=== PATIENT | female | born 1950 | race Caucasian/White ===

== ENCOUNTER 2016-11-06 18:55 | Emergency (ER) | payer OTHER ==
[~2016-11-06 18:55] MED LIST: ACET325T96 PO; ALUMSUS2 PO; ASPI-435 PO; ATOR-24 PO; ATV/1 PO; BISA10SU3 PR; CARV12.52 PO; CGN5 PO; CLOP1TAB15 PO; DPKEC250 PO; DPKEC500 PO; HALO5INJ IM; HLD5 PO; LACT3000 PO; LACTCAP3 PO; LORA2INJ19 IM; MAGN400T6 PO; MAGNSUS5 PO; MCRB100 PO; QUET1TAB10 PO; QUET1TAB13 PO; SODI1000 PO
[2016-11-06 19:01] VITALS: TEMP 36.4; O2SAT 95
[2016-11-06] MEDS ORDERED: LORAZEPAM 2 MG/ML 1 ML VIAL IM STA (19:55)
[2016-11-06] MEDS ORDERED: SODIUM CHLORIDE 0.9% 1000ML 500 ML IV STA (19:55)
[2016-11-06] MEDS ORDERED: HALOPERIDOL LACTATE 5 MG/ML 1 ML VIAL IM STA (19:55)
--- NOTE | 2016-11-06 20:02 | EMERGENCY ROOM VISIT NOTE ---
History Report prepared by Konstantin: Miguel Glover Under the Supervision of: Dr. Taran Doe M.D. First contact with patient: 19:47 Chief Complaint: SYNCOPE Stated Complaint: SYNCOPE, UNRESP EPISODE Nursing Triage Summary: pt arrives ALS from [facility]. per report pt has hx of similar unresponsive episodes. today pt had unresponsive episode lasting approx 10 minutes. pt was found in a chair. assisted to bed and did not "clear as normally". pt has hx of TIAs, HTN, dementia and schizophrenia as well as many others. pt has eyes open. pt does not talk to staff. pt looks around room. does not follow commands. per EMS [facility] staff report pt is usually uncooperative with them. pt has multiple areas of echymosis on legs in various stages of healing. History of Present Illness The patient is a 66 year old female with dementia who presents to the Emergency Room via ALS from [facility] with complaints of a sudden unresponsive episode beginning a few hours prior to arrival. She associates back pain with today's symptoms. As per nursing staff, the patient was found unresponsive in her chair. The episode lasted approximately 10 minutes, and the patient was assisted to her bed. It is noted that it is not uncommon the the patient to experience these episodes, and the patient tends to be uncooperative. It is noted the patient has a history of TIAs, dementia, and schizophrenia. It is noted the patient is DNR. The history is markedly limited secondary to the patient's dementia. Source of History: patient, nursing staff History Limited By: dementia Onset: few hours CASE WORKER Position: other (global) Quality: other (unresponsiveness) Timing: other (sudden) Associated Symptoms: + back pain Review of Systems The HPI and ROS are limited secondary to the patient's dementia. Past Medical & Surgical Medical Problems: (1) A-fib (2) Agitation (3) Alzheimer's disease (4) Atrial Fibrillation (5) Bipolar Disorder, Unspecified (6) Dementia (7) Diverticulosis Colon (W/O Ment Of Hemorrhage) (8) Elevated troponin (9) Esophageal Reflux (10) Fall (11) Hyperlipidemia Nec/Nos (12) Hypertension Nos (13) Hypomagnesemia (14) Hyponatremia Family History Diabetes mellitus Heart disease Other endocrine and metabolic diseases Social History Smoking Status: Unknown if Ever Smoked Alcohol Use: none Drug Use: none Marital Status: single Housing Status: senior care Occupation Status: retired Current/Historical Medications Scheduled Amoxicillin (Amoxil), 500 MG PO TID Aspirin (Aspirin 81), 81 MG PO DAILY Atorvastatin (Lipitor), 80 MG PO QPM Bisacodyl (Dulcolax), 1 SUPP PA PRN UD Carvedilol (Coreg), 12.5 MG PO BID Clopidogrel (Plavix), 75 MG PO DAILY Divalproex Sodium (Divalproex Sodium Dr), 250 MG PO [id number] Docusate Sodium (Docusate Sodium), 100 MG PO BID Ferrous Sulfate (Ferrous Sulfate), 325 MG PO BID Haloperidol (Haloperidol), 2.5 MG PO BID Lactase (Lactaid), 1 TAB PO AC Lactobacillus (Acidophilus), 100 MG PO BID Magnesium Hydroxide (Milk Of Magnesia), 30 ML PO PRN UD Magnesium Oxide (Mag-Ox), 400 MG PO BID Omeprazole (Prilosec), 20 MG PO QAM Polyethylene Glycol 3350 (Miralax), 17 GM PO DAILY@1200 Quetiapine Fumarate (Seroquel), 200 MG PO BID Sertraline (Zoloft), 25 MG PO QAM Sodium Chloride (External) (Sodium Chloride), 2,000 MG PO TID Scheduled PRN Acetaminophen Tab (Tylenol), 650 MG PO Q6 PRN for Pain or Fever Haloperidol Lactate (Haldol), 5 MG IM Q4 PRN for SEVERE AGGITATION Lorazepam (Ativan), 2 MG IM Q4 PRN for SEVERE AGGITATION/ANXIETY Sodium Phosphate/Biphosphate (Fleet Enema), 1 EA PA DAILY PRN for Constipation Allergies Coded Allergies: Chlordiazepoxide (Verified Allergy, Unknown, unk, 11/06/16) Clindamycin (Verified Allergy, Unknown, unknown, 11/06/16) Dairy (Unverified Allergy, Unknown, GI SYMPTOMS, 11/06/16) Erythromycin (Verified Allergy, Unknown, unk, 11/06/16) Honey (Verified Allergy, Unknown, unk, 11/06/16) Meperidine (Verified Allergy, Unknown, unk, 11/06/16) Metoprolol (Verified Allergy, Unknown, unk, 11/06/16) Paroxetine (Verified Allergy, Unknown, unk, 11/06/16) Peanut (Verified Allergy, Unknown, PEANUT BUTTER, 11/06/16) Sulfa Antibiotics (Verified Allergy, Unknown, `, 11/06/16) Venlafaxine (Verified Allergy, Unknown, unk, 11/06/16) Penicillins (Verified Adverse Reaction, Intermediate, NAUSEA, YEAST INFECTION, 11/06/16) Lactose Intolerance (GI) (Verified Adverse Reaction, Unknown, GI SYMPTOMS , 11/06/16) Physical Exam Vital Signs Date Time Temp Pulse Resp B/P Pulse Ox O2 Delivery O2 Flow Rate FiO2 11/07/16 02:57 78 20 122/71 99 Room Air 11/07/16 01:55 80 18 121/69 96 Room Air 11/07/16 00:04 81 20 95/60 95 Room Air 11/06/16 22:20 80 20 124/95 96 Room Air 11/06/16 21:19 78 20 142/97 96 Room Air 11/06/16 20:59 196/123 11/06/16 20:55 82 31 95 11/06/16 20:29 156/107 11/06/16 20:25 79 24 96 11/06/16 19:58 160/126 11/06/16 19:55 80 37 96 11/06/16 19:28 150/112 11/06/16 19:25 94 29 95 11/06/16 19:11 82 11/06/16 19:06 147/105 11/06/16 19:01 95 Room Air 11/06/16 19:01 36.4 85 24 152/107 94 Room Air Physical Exam GENERAL: Patient is yelling, awake, lying on stretcher. HEENT: No acute trauma, normocephalic atraumatic, mucous membranes moist, no nasal congestion, no scleral icterus. NECK: No stridor, no adenopathy, no meningismus, trachea is midline. LUNGS: Clear to auscultation bilaterally, no wheeze, no rhonchi, breath sounds equal. HEART: Without murmurs gallops or rubs, regular rate and rhythm. ABDOMEN: Soft, nontender, bowel sounds positive, no hernias, no peritonitis. EXTREMITIES: No cyanosis or edema, full range of motion of all the joints without pain or difficulty. NEUROLOGIC: Awake, alert. Dementia noted. Moving all extremities equally. No obvious focal motor deficit. No facial droop. SKIN: No rash, no jaundice, no diaphoresis. Medical Decision & Procedures ER Provider Diagnostic Interpretation: X ray results and stated below per my interpretation and radiologist interpretation. Other radiology results and stated below per my review and radiologist interpretation: CHEST ONE VIEW PORTABLE HISTORY: EVALUATE ALTERED MENTAL STATUS/WEAKNESS COMPARISON: Chest 06/21/2016. FINDINGS: No pleural effusions. No pneumothorax. The lungs are clear. The heart is stable in size. There is a large hiatus hernia, unchanged. IMPRESSION: No significant change compared to the prior study. No acute process. Large hiatus hernia is again noted. Electronically signed by: Feliciano Armendariz M.D. 11/06/2016 8:39 PM Dictated Date/Time: 11/06/2016 8:[address] NON[address]AST CT DOSE: 1228.53 mGy.cm HISTORY: EVALUATE ALTERED MENTAL STATUS/WEAKNESS TECHNIQUE: Multiaxial CT images of the head were performed without the use of intravenous contrast. Automated exposure control was utilized for this study. Comparison: Head CT 06/21/2016. Findings: Small retention cysts within the bilateral maxillary sinuses. The mastoid air cells are clear. The calvarium and skull base are intact. There is no mass, hematoma, midline shift, acute infarct. White matter hypodensity is nonspecific but suggestive of microvascular ischemic change. The ventricles and sulci demonstrate mild age-related involutional changes. Impression: No significant change compared to the prior study. No acute intracranial abnormality. Electronically signed by: Feliciano Armendariz M.D. 11/06/2016 10:17 PM Dictated Date/Time: 11/06/2016 10:14 PM Laboratory Results 11/06/16 21:14 Red Blood Count 4.04, Mean Corpuscular Volume 95.3, Mean Corpuscular Hemoglobin 33.9, Mean Corpuscular Hemoglobin Concent 35.6, Mean Platelet Volume 10.4, Neutrophils (%) (Auto) 56.0, Lymphocytes (%) (Auto) 29.0, Monocytes (%) (Auto) 9.2, Eosinophils (%) (Auto) 5.1, Basophils (%) (Auto) 0.5, Neutrophils # (Auto) 4.70, Lymphocytes # (Auto) 2.44, Monocytes # (Auto) 0.77, Eosinophils # (Auto) 0.43, Basophils # (Auto) 0.04 11/06/16 21:14 Test 1/11/17 00:00 11/06/16 21:14 Urine Color YELLOW Urine Appearance CLEAR (CLEAR) Urine pH 7.0 (4.5-7.5) Urine Specific [place] 1.010 (1.000-1.030) Urine Protein NEG (NEG) Urine Glucose (UA) NEG (NEG) Urine Ketones NEG (NEG) Urine Occult Blood NEG (NEG) Urine Nitrite POS (NEG) Urine Bilirubin NEG (NEG) Urine Urobilinogen NEG (NEG) Urine Leukocyte Esterase MODERATE (NEG) Urine WBC (Auto) >30 /hpf (0-5) Urine RBC (Auto) 0-4 /hpf (0-4) Urine Hyaline Casts (Auto) 1-5 /lpf (0-5) Urine Epithelial Cells (Auto) 0-5 /lpf (0-5) Urine Bacteria (Auto) 3+ (NEG) White Blood Count 8.40 K/uL (4.8-10.8) Red Blood Count 4.04 M/uL (4.2-5.4) Hemoglobin 13.7 g/dL (12.0-16.0) Hematocrit 38.5 % (37-47) Mean Corpuscular Volume 95.3 fL (80-100) Mean Corpuscular Hemoglobin 33.9 pg (25-34) Mean Corpuscular Hemoglobin Concent 35.6 g/dl (32-36) Platelet Count 326 K/uL (130-400) Mean Platelet Volume 10.4 fL (7.4-10.4) Neutrophils (%) (Auto) 56.0 % Lymphocytes (%) (Auto) 29.0 % Monocytes (%) (Auto) 9.2 % Eosinophils (%) (Auto) 5.1 % Basophils (%) (Auto) 0.5 % Neutrophils # (Auto) 4.70 K/uL (1.4-6.5) Lymphocytes # (Auto) 2.44 K/uL (1.2-3.4) Monocytes # (Auto) 0.77 K/uL (0.11-0.59) Eosinophils # (Auto) 0.43 K/uL (0-0.5) Basophils # (Auto) 0.04 K/uL (0-0.2) RDW Standard Deviation 46.3 fL (36.4-46.3) RDW Coefficient of Variation 13.4 % (11.5-14.5) Immature Granulocyte % (Auto) 0.2 % Immature Granulocyte # (Auto) 0.02 K/uL (0.00-0.02) Anion Gap 13.0 mmol/L (3-11) Estimated GFR () 105.2 Estimated GFR (Non- 90.8 BUN/Creatinine Ratio 23.2 (10-20) Calcium Level 9.3 mg/dl (8.5-10.1) Total Bilirubin 0.4 mg/dl (0.2-1) Aspartate Amino Transf (AST/SGOT) 23 U/L (15-37) Alanine Aminotransferase (ALT/SGPT) 16 U/L (12-78) Alkaline Phosphatase 95 U/L (45-117) Troponin I < 0.015 ng/ml (0-0.045) Total Protein 7.3 gm/dl (6.4-8.2) Albumin 3.5 gm/dl (3.4-5.0) Globulin 3.8 gm/dl (2.5-4.0) Albumin/Globulin Ratio 0.9 (0.9-2) Valproic Acid (Depakene) Level 53 mcg/ml (50-100) Laboratory results reviewed by me. Medications Administered Medications (Trade) Dose Ordered Sig/Trudi Route Start Time Stop Time Status Last Admin Dose Admin Haloperidol Lactate (Haldol Inj) 5 mg NOW STAT IM 11/06/16 19:55 11/06/16 19:57 DC 11/06/16 20:05 5 MG Lorazepam 1 mg 1 mg NOW STAT IM 11/06/16 19:55 11/06/16 19:58 DC 11/06/16 20:05 1 MG Sodium Chloride 500 ml @ 999 mls/hr Q31M STAT IV 11/06/16 19:55 11/06/16 20:25 DC 11/06/16 20:06 999 MLS/HR Ampicillin Sodium/ Sulbactam Sodium/ Sodium Chloride (Unasyn Inj/Nss 50ml) 54 ml @ 100 mls/hr NOW STAT IV 11/06/16 22:48 11/06/16 23:20 DC 11/06/16 23:00 100 MLS/HR ECG Indication: other (unresponsiveness) Rate (beats per minute): 74 Rhythm: normal sinus Findings: no acute ischemic change, no ectopy, other (old septal infarct) ED Course 1949: The patient was evaluated in room B12A. A complete history and physical exam was performed. 1954: Ordered Sodium Chloride 500 ml @ 999 mls/hr IV, Ativan Inj 1 mg IM, Haldol Inj 5 mg IM. 2247: Ordered Ampicillin Sodium/ Sulbactam Sodium 1,500 mg/Sodium Chloride 54 ml @ 100 mls/hr IV. 1955: I spoke to the patient's power of litigation attorney, and she would like labs and urine tests performed. She notes the patient can return to [facility] if nothing is found on the tests. 2252: Reevaluated the patient. The patient is ready for discharge. Medical Decision The differential diagnoses include but are not limited to: UTI, dehydration, stroke, intracranial bleeding, electrolyte imbalance, cardiac ischemia, medication reaction, [place]. There is no leukocytosis or concerning anemia. No significant electrolyte abnormality, kidney failure, hepatitis. EKG shows a sinus rhythm, there was no acute ischemia. Cardiac enzyme testing times one is not suggestive of acute cardiac injury. Chest x-ray shows no true pneumonia, no CHF. Brain CT shows no acute bleed or mass effect. Urinalysis does suggest infection. Urine culture is pending. Valproic acid level is therapeutic. The patient received IV saline. Because she was somewhat agitated, I spoke to her power of litigation attorney over the phone. The patient did receive IM Haldol and IM Ativan, she did well with this medication, she actually has Haldol on her list of meds. The patient was resting comfortably after this medication was given. The patient did receive IV Unasyn as coverage for her UTI. Previous urine cultures have shown sensitivity to ampicillin. The patient is being discharged on amoxicillin 3 times a day for a week. The antibiotics can be adjusted based on her urine culture. The patient can be returned if worsening. She was felt safe for discharge back to her senior care. Apparently, these unresponsive episodes are not uncommon, the power of litigation attorney voiced this to me. Often times, she does become more agitated and uncooperative when she has a urinary infection. Consults Time Called: 1950 Consulting Physician: Patient's power of litigation attorney Returned Call: 1955 I spoke to the patient's power of litigation attorney, and she would like labs and urine tests performed. She notes the patient can return to [facility] if nothing is found on the tests. Impression Primary Impression: Unresponsive episode Additional Impression: UTI (urinary tract infection) Scribe Attestation The scribe's documentation has been prepared under my direction and personally reviewed by me in its entirety. I confirm that the note above accurately reflects all work, treatment, procedures, and medical decision making performed by me. Departure Information Dispostion Home / Self-Care Prescriptions Amoxicillin (AMOXIL) 500 Mg Cap 500 MG PO TID, #21 CAP Prov: Taran Doe M.D. 11/06/16 Referrals Hui Lacy (PCP) Forms HOME CARE DOCUMENTATION FORM, IMPORTANT VISIT INFORMATION Patient Instructions A Signature Page, My [facility] FRAMED Additional Instructions amoxicillin 3x per day for 1 week fluids rest return if worsening lab testing and brain imaging was all ok today Problem Qualifiers
[2016-11-06] MEDS ORDERED: SERT25TA PO (20:11)
[2016-11-06] MEDS ORDERED: SODIENE PR (20:11)
[2016-11-06] MEDS ORDERED: ATOR-26 PO (20:11)
[2016-11-06] MEDS ORDERED: POLY335025 PO (20:11)
[2016-11-06] MEDS ORDERED: PRLSR20 PO (20:11)
[2016-11-06] MEDS ORDERED: CLC100 PO (20:11)
[2016-11-06] MEDS ORDERED: FRRS300 PO (20:11)
--- NOTE | 2016-11-06 20:41 | DIAGNOSTIC IMAGING REPORT ---
CHEST ONE VIEW PORTABLE HISTORY: EVALUATE ALTERED MENTAL STATUS/WEAKNESS COMPARISON: Chest 06/21/2016. FINDINGS: No pleural effusions. No pneumothorax. The lungs are clear. The heart is stable in size. There is a large hiatus hernia, unchanged. IMPRESSION: No significant change compared to the prior study. No acute process. Large hiatus hernia is again noted. Electronically signed by: Feliciano Armendariz M.D. 11/06/2016 8:39 PM Dictated Date/Time: 11/06/2016 8:38 PM
[2016-11-06 21:49] LABS: BASO % 0.5 %; BASO ABS # 0.04 K/uL (0-0.2); COMPLETE YES; EOS % 5.1 %; HEMATOCRIT 38.5 % (37-47); IG% 0.2 %; LYMPH ABS # 2.44 K/uL (1.2-3.4); MEAN CELL VOLUME 95.3 fL (80-100); MEAN CORPUSCULAR HEMOGLOBIN 33.9 pg (25-34); MEAN CORPUSCULAR HGB CONC 35.6 g/dl (32-36); MEAN PLATELET VOLUME 10.4 fL (7.4-10.4); MONO % 9.2 %; PLATELET COUNT 326 K/uL (130-400); RED BLOOD COUNT 4.04 M/uL (4.2-5.4)
[2016-11-06 22:06] LABS: ALT/SGPT 16 U/L (12-78); BLOOD UREA NITROGEN 15 mg/dl (7-18); BUN/CREATININE RATIO 23.2 (10-20); CALCIUM 9.3 mg/dl (8.5-10.1); CARBON DIOXIDE 25 mmol/L (21-32); CHLORIDE 95 mmol/L (98-107); CREATININE 0.66 mg/dl (0.60-1.20); GLUCOSE 101 mg/dl (70-99); POTASSIUM 4.2 mmol/L (3.5-5.1); SODIUM 133 mmol/L (136-145)
[2016-11-06 22:10] LABS: ALB/GLOB RATIO 0.9 (0.9-2); ALKALINE PHOSPHATASE 95 U/L (45-117); AST/SGOT 23 U/L (15-37)
[2016-11-06 22:19] LABS: MANUAL MICROSCOPIC REQUIRED? NO; REVIEW REQ? NO; URINE APPEARANCE CLEAR (CLEAR); URINE BILIRUBIN NEG (NEG); URINE COLOR YELLOW; URINE EPITHELIAL CELL AUTO 0-5 /lpf (0-5); URINE NITRITE POS (NEG); UROBILINOGEN NEG (NEG); ZZURINE CULT IF INDIC CATH YES
--- NOTE | 2016-11-06 22:19 | DIAGNOSTIC IMAGING REPORT ---
HEAD CT NONCONTRAST CT DOSE: 1228.53 mGy.cm HISTORY: EVALUATE ALTERED MENTAL STATUS/WEAKNESS TECHNIQUE: Multiaxial CT images of the head were performed without the use of intravenous contrast. Automated exposure control was utilized for this study. Comparison: Head CT 06/21/2016. Findings: Small retention cysts within the bilateral maxillary sinuses. The mastoid air cells are clear. The calvarium and skull base are intact. There is no mass, hematoma, midline shift, acute infarct. White matter hypodensity is nonspecific but suggestive of microvascular ischemic change. The ventricles and sulci demonstrate mild age-related involutional changes. Impression: No significant change compared to the prior study. No acute intracranial abnormality. Electronically signed by: Feliciano Armendariz M.D. 11/06/2016 10:17 PM Dictated Date/Time: 11/06/2016 10:14 PM
[2016-11-06] MEDS ORDERED: AMPICILLIN/SULBACTAM SOD INJ 1,500 MG in SODIUM CHLORIDE 0.9% 50ML 50 ML IV STA (22:48)
[2016-11-06] MEDS ORDERED: AMOX500C3 PO (22:51)
[2016-11-07 02:57] VITALS: BP 122/71; PULSE 78; O2SAT 99
== END 2016-11-07 03:16 | disposition home or self-care (01) ==
LOC: EDBD 18:55 → C.EDB 18:56
DX: R41.82 Altered mental status, unspecified (principal); N39.0 Urinary tract infection, site not specified; I48.91 Unspecified atrial fibrillation; I10 Essential (primary) hypertension; E78.5 Hyperlipidemia, unspecified; F31.9 Bipolar disorder, unspecified; K21.9 Gastro-esophageal reflux disease without esophagitis; G30.9 Alzheimer's disease, unspecified; F02.80 Dementia in other diseases classified elsewhere, unspecified severity, without behavioral disturbance, psychotic disturbance, mood disturbance, and anxiety; K57.90 Diverticulosis of intestine, part unspecified, without perforation or abscess without bleeding; Z79.82 Long term (current) use of aspirin; Z79.899 Other long term (current) drug therapy; Z88.0 Allergy status to penicillin; Z88.2 Allergy status to sulfonamides; Z79.84 Long term (current) use of oral hypoglycemic drugs; Z83.3 Family history of diabetes mellitus; Z82.49 Family history of ischemic heart disease and other diseases of the circulatory system

== ENCOUNTER → 2016-11-14 | Outpatient (CLI) | payer OTHER ==
[~2016-11-14] MED LIST changes: +ACET-1311 PO; -ALUMSUS2 PO; +AMOX500C3 PO; +ARTISOL12 OPB; -ATOR-24 PO; +ATOR-26 PO; -ATV/1 PO; -CGN5 PO; +CLC100 PO; +DIVA250T4 PO; -DPKEC500 PO; +ERGO1CAP41 PO; +FRRS300 PO; +HALO5TAB PO; -MCRB100 PO; +NITR-5 PO; +POLY335025 PO; +PRLSR20 PO; -QUET1TAB13 PO; +QUET1TAB9 PO; +SENN-65 PO; +SERT25TA PO; +SODI1TAB PO; +SODIENE PR
== END ==
LOC: C.LABUPHEI 08:40
PROVIDERS: ATTEND Family Medicine
DX: G40.89 Other seizures (principal); E55.9 Vitamin D deficiency, unspecified

== ENCOUNTER → 2016-11-21 | Outpatient (CLI) | payer OTHER ==
[~2016-11-21] MED LIST changes: -AMOX500C3 PO
== END ==
LOC: C.LABUPHEI 07:54
PROVIDERS: ATTEND Family Medicine
DX: G40.89 Other seizures (principal)

== ENCOUNTER → 2016-12-20 | Outpatient (CLI) | payer OTHER ==
[2016-12-20 09:17] LABS: ALB/GLOB RATIO 0.8 (0.9-2); ALKALINE PHOSPHATASE 112 U/L (45-117); ALT/SGPT 14 U/L (12-78); AST/SGOT 18 U/L (15-37); BLOOD UREA NITROGEN 14 mg/dl (7-18); BUN/CREATININE RATIO 30.7 (10-20); CALCIUM 8.1 mg/dl (8.5-10.1); CARBON DIOXIDE 26 mmol/L (21-32); CHLORIDE 96 mmol/L (98-107); CREATININE 0.46 mg/dl (0.60-1.20); GLUCOSE 86 mg/dl (70-99); POTASSIUM 4.2 mmol/L (3.5-5.1); SODIUM 130 mmol/L (136-145)
== END ==
LOC: C.LABUPHEI 08:33
PROVIDERS: ATTEND Family Medicine
DX: R60.9 Edema, unspecified (principal)

== ENCOUNTER → 2016-12-23 | Outpatient (CLI) | payer OTHER | LOC: C.LABUPHEI 08:58 | PROVIDERS: ATTEND Family Medicine | DX: G40.89 Other seizures (principal); Z79.899 Other long term (current) drug therapy ==

== ENCOUNTER → 2016-12-31 | Outpatient (CLI) | payer OTHER ==
[2016-12-31 10:00] LABS: BLOOD UREA NITROGEN 17 mg/dl (7-18); CARBON DIOXIDE 28 mmol/L (21-32); CHLORIDE 99 mmol/L (98-107); CREATININE 0.55 mg/dl (0.60-1.20); GLUCOSE 75 mg/dl (70-99); POTASSIUM 4.4 mmol/L (3.5-5.1); SODIUM 134 mmol/L (136-145)
== END ==
LOC: C.LABUPHEI 09:02
PROVIDERS: ATTEND Family Medicine
DX: E87.1 Hypo-osmolality and hyponatremia (principal)

== ENCOUNTER → 2017-02-15 | Outpatient (CLI) | payer OTHER ==
[~2017-02-15] MED LIST changes: +BENZ-88 PO; +CARV6.252 PO; +DIVA125C PO; -ERGO1CAP41 PO; +ERGO500011 PO; +LORA-741 PO; +MELA1TAB49 PO; +NTRS PO; +ONDA4TAB46 PO; +RISP0.5T9 PO; +SENN-61 PO
[2017-02-15 06:59] LABS: BASO % 0.5 %; BASO ABS # 0.05 K/uL (0-0.2); COMPLETE YES; EOS % 22.2 %; HEMATOCRIT 31.5 % (37-47); IG% 0.3 %; LYMPH ABS # 4.42 K/uL (1.2-3.4); MEAN CELL VOLUME 99.7 fL (80-100); MEAN CORPUSCULAR HEMOGLOBIN 33.2 pg (25-34); MEAN CORPUSCULAR HGB CONC 33.3 g/dl (32-36); MEAN PLATELET VOLUME 10.4 fL (7.4-10.4); MONO % 9.5 %; NEUT % 22.5 %; PLATELET COUNT 271 K/uL (130-400); RED BLOOD COUNT 3.16 M/uL (4.2-5.4); WHITE BLOOD COUNT 9.83 K/uL (4.8-10.8)
[2017-02-15 07:11] LABS: ALT/SGPT 13 U/L (12-78); AST/SGOT 15 U/L (15-37); BLOOD UREA NITROGEN 15 mg/dl (7-18); BUN/CREATININE RATIO 29.5 (10-20); CARBON DIOXIDE 29 mmol/L (21-32); CHLORIDE 101 mmol/L (98-107); CREATININE 0.52 mg/dl (0.60-1.20); GLUCOSE 88 mg/dl (70-99); POTASSIUM 4.1 mmol/L (3.5-5.1); SODIUM 138 mmol/L (136-145)
[2017-02-15 07:13] LABS: ALKALINE PHOSPHATASE 87 U/L (45-117)
--- NOTE | 2017-03-04 11:37 | CODING QUERY NO DIAGNOSIS ---
TREATMENT RENDERED WITHOUT A DIAGNOSIS To promote full compliance with coding requirements relating to patient care, physician participation is requested in all cases of medical biller coder uncertainty. Please assist us with providing a diagnosis/symptom for the test(s) below: A diagnosis/symptom was not documented on your Order. A valid diagnosis/symptom is required to bill all insurances. Please remember that we are unable to code a diagnosis of rule out, probable, possible, questionable, or suspected. DATE OF SERVICE: 02/15/17 Tests that require a diagnosis: * COMP. METABOLIC PROFILE DIAGNOSIS: * CBC W/ AUTO DIFF. DIAGNOSIS: * VITAMIN D, 25-HYDROXY DIAGNOSIS: * VALPROIC ACID_ DIAGNOSIS: Provider Signature: Date: Thank you Olivia Berman [facility] Information Management Once completed, please kindly fax back to [phone] For questions please call [phone]
== END ==
LOC: C.LABUPHEI 04:25
PROVIDERS: ATTEND Family Medicine
DX: E87.1 Hypo-osmolality and hyponatremia (principal); E55.9 Vitamin D deficiency, unspecified; G40.89 Other seizures

== ENCOUNTER → 2017-02-17 | Outpatient (CLI) | payer OTHER | LOC: C.LABUPHEI 10:19 | PROVIDERS: ATTEND Family Medicine | DX: G40.89 Other seizures (principal) ==

== ENCOUNTER → 2017-03-20 | Outpatient (CLI) | payer OTHER ==
[2017-03-20 10:12] LABS: HEMATOCRIT 39.3 % (37-47)
--- NOTE | 2017-03-26 09:28 | CODING QUERY NO DIAGNOSIS ---
TREATMENT RENDERED WITHOUT A DIAGNOSIS To promote full compliance with coding requirements relating to patient care, physician participation is requested in all cases of information coder uncertainty. Please assist us with providing a diagnosis/symptom for the test(s) below: A diagnosis/symptom was not documented on your Order. A valid diagnosis/symptom is required to bill all insurances. Please remember that we are unable to code a diagnosis of rule out, probable, possible, questionable, or suspected. Tests that require a diagnosis: DOS 03/20 * H&H DIAGNOSIS: Provider Signature: Date: Thank you Tere [facility] Information Management Once completed, please kindly fax back to [phone] For questions please call [phone]
== END ==
LOC: C.LABUPHEI 09:15
PROVIDERS: ATTEND Nurse Practitioner Family
DX: D64.9 Anemia, unspecified (principal)

== ENCOUNTER → 2017-04-15 | Outpatient (CLI) | payer OTHER ==
[~2017-04-15] MED LIST changes: -BENZ-88 PO; -CARV6.252 PO; -DIVA125C PO; +ERGO1CAP41 PO; -ERGO500011 PO; -LORA-741 PO; -MELA1TAB49 PO; -NTRS PO; -ONDA4TAB46 PO; -RISP0.5T9 PO; -SENN-61 PO
[2017-04-15 11:13] LABS: ALT/SGPT 16 U/L (12-78); AST/SGOT 16 U/L (15-37); BLOOD UREA NITROGEN 14 mg/dl (7-18); BUN/CREATININE RATIO 27.3 (10-20); CALCIUM 8.6 mg/dl (8.5-10.1); CARBON DIOXIDE 29 mmol/L (21-32); CHLORIDE 103 mmol/L (98-107); GLUCOSE 76 mg/dl (70-99); POTASSIUM 4.2 mmol/L (3.5-5.1); SODIUM 140 mmol/L (136-145)
[2017-04-15 11:16] LABS: ALKALINE PHOSPHATASE 85 U/L (45-117)
== END ==
LOC: C.LABUPHEI 10:04
PROVIDERS: ATTEND Nurse Practitioner Family
DX: E87.1 Hypo-osmolality and hyponatremia (principal)

== ENCOUNTER → 2017-05-03 | Outpatient (CLI) | payer OTHER ==
[2017-05-03 07:00] LABS: BASO % 0.5 %; BASO ABS # 0.05 K/uL (0-0.2); COMPLETE YES; EOS % 16.5 %; HEMATOCRIT 36.3 % (37-47); IG% 0.4 %; LYMPH % 47.7 %; LYMPH ABS # 4.36 K/uL (1.2-3.4); MEAN CELL VOLUME 97.8 fL (80-100); MEAN CORPUSCULAR HEMOGLOBIN 33.4 pg (25-34); MEAN CORPUSCULAR HGB CONC 34.2 g/dl (32-36); MEAN PLATELET VOLUME 10.3 fL (7.4-10.4); MONO % 10.4 %; NEUT % 24.5 %; PLATELET COUNT 289 K/uL (130-400); RED BLOOD COUNT 3.71 M/uL (4.2-5.4); WHITE BLOOD COUNT 9.15 K/uL (4.8-10.8)
[2017-05-03 07:12] LABS: INR 1.1 (0.9-1.1); PROTHROMBIN TIME (PATIENT) 11.4 SECONDS (9.0-12.0)
== END | disposition home or self-care (01) ==
LOC: C.LABUPHEI 15:19
PROVIDERS: ATTEND Family Medicine
DX: Z00.00 Encounter for general adult medical examination without abnormal findings (principal)

== ENCOUNTER → 2017-05-12 | Outpatient (CLI) | payer OTHER | LOC: C.LABUPHEI 17:31 | PROVIDERS: ATTEND Family Medicine | DX: N32.9 Bladder disorder, unspecified (principal); N39.0 Urinary tract infection, site not specified ==

== ENCOUNTER → 2017-05-13 | Outpatient (CLI) | payer OTHER ==
[2017-05-13 09:34] LABS: BASO % 0.7 %; BASO ABS # 0.06 K/uL (0-0.2); COMPLETE YES; EOS % 15.3 %; HEMATOCRIT 41.1 % (37-47); IG% 0.2 %; LYMPH % 42.1 %; LYMPH ABS # 3.79 K/uL (1.2-3.4); MEAN CELL VOLUME 97.6 fL (80-100); MEAN CORPUSCULAR HEMOGLOBIN 32.5 pg (25-34); MEAN CORPUSCULAR HGB CONC 33.3 g/dl (32-36); MEAN PLATELET VOLUME 9.9 fL (7.4-10.4); MONO % 11.9 %; NEUT % 29.8 %; PLATELET COUNT 334 K/uL (130-400); RED BLOOD COUNT 4.21 M/uL (4.2-5.4); WHITE BLOOD COUNT 9.01 K/uL (4.8-10.8)
[2017-05-13 09:45] LABS: BLOOD UREA NITROGEN 7 mg/dl (7-18); BUN/CREATININE RATIO 15.9 (10-20); CALCIUM 8.6 mg/dl (8.5-10.1); CARBON DIOXIDE 31 mmol/L (21-32); CHLORIDE 97 mmol/L (98-107); CREATININE 0.45 mg/dl (0.60-1.20); GLUCOSE 84 mg/dl (70-99); SODIUM 133 mmol/L (136-145)
[2017-05-13 09:49] LABS: ALKALINE PHOSPHATASE 88 U/L (45-117); ALT/SGPT 18 U/L (12-78); AST/SGOT 18 U/L (15-37)
== END | disposition home or self-care (01) ==
LOC: C.LABUPHEI 08:40
PROVIDERS: ATTEND Family Medicine
DX: M62.81 Muscle weakness (generalized) (principal)

== ENCOUNTER 2017-05-16 12:56 | Emergency (ER) | payer OTHER ==
[~2017-05-16] VITALS: Ht 165.1 cm; Wt 51.0 kg
[~2017-05-16 12:56] MED LIST changes: -ACET-1311 PO; -ARTISOL12 OPB; -DIVA250T4 PO; -ERGO1CAP41 PO; -HALO5TAB PO; -NITR-5 PO; -QUET1TAB9 PO; -SENN-65 PO; -SODI1TAB PO
[2017-05-16 13:13] VITALS: TEMP 36.5; Ht 165.1 cm; Wt 51.0 kg
--- NOTE | 2017-05-16 13:21 | EMERGENCY ROOM VISIT NOTE ---
History Report prepared by Konstantin: Tamar Kaur Under the Supervision of: Dr. Roseanna Tavera D.O. First contact with patient: 13:03 Chief Complaint: MENTAL HEALTH EVALUATION Stated Complaint: PSYCH History of Present Illness The patient is a 67 year old female who presents to the Emergency Room for a mental health evaluation. Per nursing staff, the [facility], with a [facility] warrant, for reportedly jumping out of her chair repeatedly. The patient denies trying to harm herself. She does report a headache and light headedness secondary to hitting her head during one of the falls. She denies loss of consciousness. The patient is currently being treated for a UTI. She has a history of Schizophrenia, PTSD, and depression. 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 A total of 10 systems reviewed and were otherwise negative. Past Medical & Surgical Medical Problems: (1) A-fib (2) Agitation (3) Alzheimer's disease (4) Atrial Fibrillation (5) Bipolar Disorder, Unspecified (6) Dementia (7) Diverticulosis Colon (W/O Ment Of Hemorrhage) (8) Elevated troponin (9) Esophageal Reflux (10) Fall (11) Hyperlipidemia Nec/Nos (12) Hypertension Nos (13) Hypomagnesemia (14) Hyponatremia Family History Diabetes mellitus Heart disease Other endocrine and metabolic diseases Social History Smoking Status: Unknown if Ever Smoked Alcohol Use: none Drug Use: none Marital Status: single Housing Status: [facility] Occupation Status: retired Current/Historical Medications Scheduled Acetaminophen Tab (Tylenol), 650 MG PO BID Artificial Tear Solution (Artificial Tears), 1 DROPS OPB BID Aspirin (Aspirin 81), 81 MG PO DAILY Atorvastatin (Lipitor), 80 MG PO QPM Carvedilol (Coreg), 12.5 MG PO BID Clopidogrel (Plavix), 75 MG PO DAILY Divalproex Sodium (Depakote Delay Rel), 250 MG PO TID Ergocalciferol (Vitamin D 52742 Unit), 1 CAP PO WK Ferrous Sulfate (Ferrous Sulfate), 325 MG PO BID Haloperidol (Haldol), 5 MG PO BID Lactase (Lactaid), 1 TAB PO AC Lactobacillus (Acidophilus), 100 MG PO BID Magnesium Oxide (Mag-Ox), 400 MG PO BID Nitrofurantoin Monohyd Macrocr (Macrobid), 100 MG PO BID Omeprazole (Prilosec), 20 MG PO QAM Polyethylene Glycol 3350 (Miralax), 17 GM PO DAILY@1200 Quetiapine Fumarate (Seroquel), 100 MG PO BID Senna/Docusate Sod (Senokot S), 1 TAB PO BID Sertraline (Zoloft), 25 MG PO QAM Sodium Chloride (Sodium Chloride), 2 GM PO BID Scheduled PRN Acetaminophen (Tylenol), 650 MG PO Q6H PRN for Pain Haloperidol Lactate (Haldol), 5 MG IM Q4 PRN for SEVERE AGGITATION Allergies Coded Allergies: Chlordiazepoxide (Verified Allergy, Unknown, unk, 11/06/16) Clindamycin (Verified Allergy, Unknown, unknown, 11/06/16) Dairy (Unverified Allergy, Unknown, GI SYMPTOMS, 11/06/16) Erythromycin (Verified Allergy, Unknown, unk, 11/06/16) Honey (Verified Allergy, Unknown, unk, 11/06/16) Meperidine (Verified Allergy, Unknown, unk, 11/06/16) Metoprolol (Verified Allergy, Unknown, unk, 11/06/16) Paroxetine (Verified Allergy, Unknown, unk, 11/06/16) Peanut (Verified Allergy, Unknown, PEANUT BUTTER, 11/06/16) Sulfa Antibiotics (Verified Allergy, Unknown, `, 11/06/16) Venlafaxine (Verified Allergy, Unknown, unk, 11/06/16) Penicillins (Verified Adverse Reaction, Intermediate, NAUSEA, YEAST INFECTION, 11/06/16) Lactose Intolerance (GI) (Verified Adverse Reaction, Unknown, GI SYMPTOMS , 11/06/16) Physical Exam Vital Signs Date Time Temp Pulse Resp B/P (MAP) Pulse Ox O2 Delivery O2 Flow Rate FiO2 05/17/17 01:02 65 20 178/101 96 05/16/17 23:55 74 20 187/124 96 Room Air 05/16/17 23:51 71 20 218/141 96 Room Air 05/16/17 23:35 68 20 228/140 94 Room Air 213/142 05/16/17 22:35 209/118 7/21/17 22:12 61 18 196/109 96 Room Air 05/16/17 21:13 66 05/16/17 17:13 70 05/16/17 15:09 70 19 146/96 100 Room Air 05/16/17 13:17 71 05/16/17 13:13 36.5 69 16 166/98 95 Room Air Physical Exam Exam limited d/t patient cooperation GENERAL: alert, well appearing, no distress, non-toxic HEAD: No evidence of trauma to head or face. EYE EXAM: normal conjunctiva, PERRL and EOM's grossly intact OROPHARYNX: no exudate, no erythema, lips, buccal mucosa, and tongue normal and mucous membranes are moist NECK: supple, no nuchal rigidity, no adenopathy, non-tender LUNGS: Clear to auscultation. Normal chest wall mechanics HEART: no murmurs, S1 normal and S2 normal ABDOMEN: abdomen soft, non-tender, normo-active bowel sounds, no masses, no rebound or guarding. BACK: Back is symmetrical on inspection and there is no deformity, no midline tenderness, no CVA tenderness. SKIN: no rashes and no bruising UPPER EXTREMITIES: upper extremities are grossly normal. LOWER EXTREMITIES: Left lower extremity lateral aspect shows area of resolving ecchymosis. No pitting edema. NEURO EXAM: Normal sensorium, cranial nerves II-XII grossly intact, normal speech, no gross weakness of arms, no gross weakness of legs. Medical Decision & Procedures ER Provider Diagnostic Interpretation: Radiology results have been interpreted by the radiologist and reviewed by me. HEAD WITHOUT CONTRAST (CT) CT DOSE: 927.96 mGy.cm HISTORY: Mental status change. Trauma. falls, head injury, dizziness TECHNIQUE: Multiaxial CT images of the head were performed without the use of intravenous contrast. A dose lowering technique was utilized adhering to the principles of ALARA. Comparison: 11/06/2016 Findings: The paranasal sinuses and mastoid air cells are clear. The calvarium and skull base are intact. The ventricles and sulci are within normal limits. There is no mass, hematoma, midline shift, or acute infarct. 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 Moderate chronic small vessel change the periventricular deep matter regions. Mild prominence of the ventricular system and considered chronic. Impression: Chronic change. No acute intracranial abnormality The above report was generated using voice recognition software. It may contain grammatical, syntax or spelling errors. Electronically signed by: Alen Villalobos M.D. 05/16/2017 2:57 PM Dictated Date/Time: 05/16/2017 2:55 PM CERVICAL SPINE W/O CT DOSE: HISTORY: Trauma fall, head injury TECHNIQUE: Multiaxial CT images of the cervical spine were performed and reformatted in the sagittal and coronal plane without the use of contrast. A dose lowering technique was utilized adhering to the principles of ALARA. COMPARISON: 01/17/2016 FINDINGS: No fractures. No subluxation. Prevertebral soft tissues and the C1-C2 interval are intact. No pneumothorax. Moderate degenerative disc change. IMPRESSION: No fractures within the cervical spine. Moderate degenerative change. The above report was generated using voice recognition software. It may contain grammatical, syntax or spelling errors. Electronically signed by: Alen Villalobos M.D. 05/16/2017 3:01 PM Dictated Date/Time: 05/16/2017 2:57 PM Laboratory Results 05/16/17 14:20 Red Blood Count 3.90, Mean Corpuscular Volume 99.7, Mean Corpuscular Hemoglobin 33.3, Mean Corpuscular Hemoglobin Concent 33.4, Mean Platelet Volume 9.4, Neutrophils (%) (Auto) 31.2, Lymphocytes (%) (Auto) 42.4, Monocytes (%) (Auto) 9.4, Eosinophils (%) (Auto) 16.0, Basophils (%) (Auto) 0.9, Neutrophils # (Auto ) 2.38, Lymphocytes # (Auto) 3.24, Monocytes # (Auto) 0.72, Eosinophils # (Auto ) 1.22, Basophils # (Auto) 0.07 05/16/17 14:20 Test 05/16/17 14:20 05/16/17 15:45 White Blood Count 7.64 K/uL (4.8-10.8) Red Blood Count 3.90 M/uL (4.2-5.4) Hemoglobin 13.0 g/dL (12.0-16.0) Hematocrit 38.9 % (37-47) Mean Corpuscular Volume 99.7 fL (80-100) Mean Corpuscular Hemoglobin 33.3 pg (25-34) Mean Corpuscular Hemoglobin Concent 33.4 g/dl (32-36) Platelet Count 282 K/uL (130-400) Mean Platelet Volume 9.4 fL (7.4-10.4) Neutrophils (%) (Auto) 31.2 % Lymphocytes (%) (Auto) 42.4 % Monocytes (%) (Auto) 9.4 % Eosinophils (%) (Auto) 16.0 % Basophils (%) (Auto) 0.9 % Neutrophils # (Auto) 2.38 K/uL (1.4-6.5) Lymphocytes # (Auto) 3.24 K/uL (1.2-3.4) Monocytes # (Auto) 0.72 K/uL (0.11-0.59) Eosinophils # (Auto) 1.22 K/uL (0-0.5) Basophils # (Auto) 0.07 K/uL (0-0.2) RDW Standard Deviation 47.1 fL (36.4-46.3) RDW Coefficient of Variation 12.9 % (11.5-14.5) Immature Granulocyte % (Auto) 0.1 % Immature Granulocyte # (Auto) 0.01 K/uL (0.00-0.02) Anion Gap 5.0 mmol/L (3-11) Est Creatinine Clear Calc Drug Dose 80.7 ml/min Estimated GFR () 112.3 Estimated GFR (Non- 96.9 BUN/Creatinine Ratio 25.8 (10-20) Calcium Level 8.3 mg/dl (8.5-10.1) Total Bilirubin 0.4 mg/dl (0.2-1) Direct Bilirubin 0.1 mg/dl (0-0.2) Aspartate Amino Transf (AST/SGOT) 19 U/L (15-37) Alanine Aminotransferase (ALT/SGPT) 18 U/L (12-78) Alkaline Phosphatase 106 U/L (45-117) Total Protein 6.8 gm/dl (6.4-8.2) Albumin 3.3 gm/dl (3.4-5.0) Thyroid Stimulating Hormone (TSH) 0.690 uIu/ml (0.300-4.500) Ethyl Alcohol mg/dL < 3.0 mg/dl (0-3) Urine Color DK YELLOW Urine Appearance CLEAR (CLEAR) Urine pH 8.5 (4.5-7.5) Urine Specific [place] 1.014 (1.000-1.030) Urine Protein NEG (NEG) Urine Glucose (UA) NEG (NEG) Urine Ketones NEG (NEG) Urine Occult Blood NEG (NEG) Urine Nitrite NEG (NEG) Urine Bilirubin NEG (NEG) Urine Urobilinogen NEG (NEG) Urine Leukocyte Esterase NEG (NEG) Urine Opiates Screen NEG (NEG) Urine Methadone, Qualitative NEG (NEG) Urine Barbiturates NEG (NEG) Urine Phencyclidine (PCP) Level NEG (NEG) Ur Amphetamine/Methamphetamine NEG (NEG) MDMA (Ecstasy) Screen NEG (NEG) Urine Benzodiazepines Screen NEG (NEG) Urine Cocaine Metabolite NEG (NEG) Urine Marijuana (THC) NEG (NEG) Laboratory results per my review. Medications Administered Medications (Trade) Dose Ordered Sig/Trudi Route Start Time Stop Time Status Last Admin Dose Admin Acetaminophen (Tylenol Tab) 1,000 mg NOW STAT PO 05/16/17 16:25 05/16/17 16:26 DC 05/16/17 16:31 1,000 MG Magnesium Oxide (Mag-Ox Tab) 400 mg NOW STAT PO 05/16/17 20:25 05/16/17 20:28 DC 05/16/17 20:43 400 MG Carvedilol (Coreg Tab) 12.5 mg NOW ONCE PO 05/16/17 20:30 05/16/17 20:31 DC 05/16/17 20:42 12.5 MG Ferrous Sulfate (Feosol Tab) 325 mg NOW STAT PO 05/16/17 20:25 05/16/17 20:28 DC 05/16/17 20:43 325 MG Haloperidol (Haldol Tab) 5 mg NOW STAT PO 05/16/17 20:25 05/16/17 20:28 DC 05/16/17 20:42 5 MG Nitrofurantoin Macrocrystals (Macrobid Cap) 100 mg NOW STAT PO 05/16/17 20:25 05/16/17 20:28 DC 05/16/17 20:42 100 MG Quetiapine Fumarate (seroQUEL TAB) 100 mg NOW STAT PO 05/16/17 20:25 05/16/17 20:28 DC 05/16/17 20:43 100 MG Divalproex Sodium (Depakote Delay Rel Tab) 250 mg NOW ONCE PO 05/16/17 20:30 05/16/17 20:31 DC 05/16/17 20:42 250 MG Acetaminophen (Tylenol Tab) 1,000 mg NOW STAT PO 05/16/17 23:15 05/16/17 23:16 DC 05/16/17 23:30 1,000 MG Lorazepam (Ativan Tab) 1 mg NOW STAT SL 05/16/17 23:27 05/16/17 23:30 DC 05/16/17 23:33 1 MG ED Course 1312: The patient was evaluated in room A7. A complete history and physical exam was performed. 1450: Psychiatric case management called staff [facility] the [facility]. She was informed that the patient has not been evaluated by a psychiatrist since January. Patient told penitentiary staff that she intentionally threw herself out of chair. They think she will benefit from inpatient evaluation. 1545: [id number] signed by me. 1625: Ordered Tylenol Tablet 1,000 mg PO. 2030: I made Dr. Do (ER) aware of the patient at shift change. Psych embedded case manager states bed search currently suspended until tomorrow. Evening meds ordered. Medical Decision Patient with long-standing psychiatric history as well as other chronic orbita DTs, currently being treated for urinary tract infection. No evidence of acute traumatic injury, and low suspicion for additional a culture medic injury found on today's exam and imaging. Labs otherwise reassuring, no evidence of failed outpatient treatment of UTI. Unknown if original specimen sent for culture. Head Trauma GCS Score: 15 Medication Reconcilliation Current Medication List: was personally reviewed by me Blood Pressure Screening Patient's blood pressure: Elevated blood pressure Blood pressure disposition: Referred to PCP Impression Primary Impression: Depression Additional Impressions: Fall Dementia Schizophrenia Scribe Attestation The scribe's documentation has been prepared under my direction and personally reviewed by me in its entirety. I confirm that the note above accurately reflects all work, treatment, procedures, and medical decision making performed by me. Departure Information Dispostion Still a Patient Referrals Hui Lacy (PCP) Patient Instructions My [facility] Problem Qualifiers Primary Impression: Depression Depression Type: unspecified Qualified Codes: F32.9 - Major depressive disorder, single episode, unspecified Additional Impressions: Fall Encounter type: initial encounter Qualified Codes: W19.XXXA - Unspecified fall, initial encounter Dementia Dementia type: unspecified type Dementia behavioral disturbance: with behavioral disturbance Qualified Codes: F03.91 - Unspecified dementia with behavioral disturbance Schizophrenia Schizophrenia type: unspecified Qualified Codes: F20.9 - Schizophrenia, unspecified
[2017-05-16] MEDS ORDERED: NITR-5 PO (13:59)
[2017-05-16] MEDS ORDERED: ERGO1CAP41 PO (13:59)
[2017-05-16] MEDS ORDERED: SODI1TAB PO (13:59)
[2017-05-16] MEDS ORDERED: QUET1TAB9 PO (13:59)
[2017-05-16] MEDS ORDERED: DIVA250T4 PO (13:59)
[2017-05-16] MEDS ORDERED: HALO5TAB PO ×2 (13:59)
[2017-05-16] MEDS ORDERED: ARTISOL12 OPB (13:59)
[2017-05-16] MEDS ORDERED: ACET-1311 PO (13:59)
[2017-05-16] MEDS ORDERED: SENN-65 PO (13:59)
[2017-05-16] MEDS ORDERED: LACTCAP3 PO (14:03)
[2017-05-16 14:34] LABS: BASO % 0.9 %; BASO ABS # 0.07 K/uL (0-0.2); COMPLETE YES; HEMATOCRIT 38.9 % (37-47); IG% 0.1 %; LYMPH % 42.4 %; LYMPH ABS # 3.24 K/uL (1.2-3.4); MEAN CELL VOLUME 99.7 fL (80-100); MEAN CORPUSCULAR HEMOGLOBIN 33.3 pg (25-34); MEAN CORPUSCULAR HGB CONC 33.4 g/dl (32-36); MEAN PLATELET VOLUME 9.4 fL (7.4-10.4); MONO % 9.4 %; NEUT % 31.2 %; PLATELET COUNT 282 K/uL (130-400); WHITE BLOOD COUNT 7.64 K/uL (4.8-10.8)
[2017-05-16 14:56] LABS: BUN/CREATININE RATIO 25.8 (10-20); CALCIUM 8.3 mg/dl (8.5-10.1); CREATININE 0.53 mg/dl (0.60-1.20)
--- NOTE | 2017-05-16 14:58 | DIAGNOSTIC IMAGING REPORT ---
HEAD WITHOUT CONTRAST (CT) CT DOSE: 927.96 mGy.cm HISTORY: Mental status change. Trauma. falls, head injury, dizziness TECHNIQUE: Multiaxial CT images of the head were performed without the use of intravenous contrast. A dose lowering technique was utilized adhering to the principles of ALARA. Comparison: 11/06/2016 Findings: The paranasal sinuses and mastoid air cells are clear. The calvarium and skull base are intact. The ventricles and sulci are within normal limits. There is no mass, hematoma, midline shift, or acute infarct. 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 Moderate chronic small vessel change the periventricular deep matter regions. Mild prominence of the ventricular system and considered chronic. Impression: Chronic change. No acute intracranial abnormality The above report was generated using voice recognition software. It may contain grammatical, syntax or spelling errors. Electronically signed by: Alen Villalobos M.D. 05/16/2017 2:57 PM Dictated Date/Time: 05/16/2017 2:55 PM
--- NOTE | 2017-05-16 15:02 | DIAGNOSTIC IMAGING REPORT ---
CERVICAL SPINE W/O CT DOSE: HISTORY: Trauma fall, head injury TECHNIQUE: Multiaxial CT images of the cervical spine were performed and reformatted in the sagittal and coronal plane without the use of contrast. A dose lowering technique was utilized adhering to the principles of ALARA. COMPARISON: 01/17/2016 FINDINGS: No fractures. No subluxation. Prevertebral soft tissues and the C1-C2 interval are intact. No pneumothorax. Moderate degenerative disc change. IMPRESSION: No fractures within the cervical spine. Moderate degenerative change. The above report was generated using voice recognition software. It may contain grammatical, syntax or spelling errors. Electronically signed by: Alen Villalobos M.D. 05/16/2017 3:01 PM Dictated Date/Time: 05/16/2017 2:57 PM
[2017-05-16 15:07] LABS: THYROID STIMULATING HORMONE 0.69 uIu/ml (0.300-4.500)
[2017-05-16 15:58] LABS: MANUAL MICROSCOPIC REQUIRED? NO; REVIEW REQ? NO; URINE APPEARANCE CLEAR (CLEAR); URINE BILIRUBIN NEG (NEG); URINE COLOR DK YELLOW; URINE NITRITE NEG (NEG); URINE PH 8.5 (4.5-7.5); URINE SPECIFIC GRAVITY 1.014 (1.000-1.030); UROBILINOGEN NEG (NEG)
[2017-05-16 16:23] LABS: BENZODIAZEPINE, URINE NEG (NEG); COCAINE,URINE NEG (NEG); PHENCYCLIDINE, URINE NEG (NEG)
[2017-05-16] MEDS ORDERED: ACETAMINOPHEN 500 MG TAB PO STA ×2 (16:25→23:15)
[2017-05-16] MEDS ORDERED: HALOPERIDOL 5 MG TAB PO STA (20:25)
[2017-05-16] MEDS ORDERED: MAGNESIUM OXIDE 400 MG TAB PO STA (20:25)
[2017-05-16] MEDS ORDERED: FERROUS SULFATE 325 MG TAB PO STA (20:25)
[2017-05-16] MEDS ORDERED: NITROFURANTOIN MONOHYDRATE 100 MG CAP PO STA (20:25)
[2017-05-16] MEDS ORDERED: QUETIAPINE FUMARATE 100 MG TAB PO STA (20:25)
[2017-05-16] MEDS ORDERED: DIVALPROEX SODIUM 250 MG DELAY REL TAB PO ONE (20:30)
[2017-05-16] MEDS ORDERED: CARVEDILOL 12.5 MG TAB PO ONE (20:30)
[2017-05-16] MEDS ORDERED: LORAZEPAM 1 MG TAB SL STA (23:27)
--- NOTE | 2017-05-16 23:31 | EMERGENCY ROOM VISIT NOTE ---
ED Visit Note First contact with patient: 22:36 This patient was initially seen by Dr. Tavera. She was medically cleared and the patient was waiting for psychiatric placement. The patient was accepted to the facility in [place]. While waiting for the Constable to take her patient became agitated. Her blood pressure was elevated. She complained of back pain and was demanding Tylenol. She was given Tylenol. She denies any chest pain or shortness of breath. She was given Ativan to calm her down. I suspect the blood pressure is elevated because of her agitation. On recheck her blood pressure was 104/72. The patient was transported to [place] by the Constable.
[2017-05-17 01:02] VITALS: BP 178/101; PULSE 65; O2SAT 96
== END 2017-05-17 00:50 | disposition short-term general hospital (02) ==
LOC: EDBD 12:56 → C.EDA 12:58
DX: F32.9 Major depressive disorder, single episode, unspecified (principal); W19.XXXA Unspecified fall, initial encounter; F20.9 Schizophrenia, unspecified; F03.90 Unspecified dementia, unspecified severity, without behavioral disturbance, psychotic disturbance, mood disturbance, and anxiety; I48.91 Unspecified atrial fibrillation; E78.5 Hyperlipidemia, unspecified; I10 Essential (primary) hypertension; K21.9 Gastro-esophageal reflux disease without esophagitis; F31.9 Bipolar disorder, unspecified; G30.9 Alzheimer's disease, unspecified; K57.30 Diverticulosis of large intestine without perforation or abscess without bleeding; Z79.82 Long term (current) use of aspirin; Z79.899 Other long term (current) drug therapy; Z88.0 Allergy status to penicillin; Z88.2 Allergy status to sulfonamides; Z88.8 Allergy status to other drugs, medicaments and biological substances; Z91.018 Allergy to other foods; Z91.011 Allergy to milk products; Z83.3 Family history of diabetes mellitus; Z82.49 Family history of ischemic heart disease and other diseases of the circulatory system

== ENCOUNTER → 2017-08-19 | Outpatient (CLI) | payer OTHER ==
[~2017-08-19] MED LIST changes: +ACET-1311 PO; +ARTISOL12 OPB; -BISA10SU3 PR; -CLC100 PO; +DIVA250T4 PO; -DPKEC250 PO; +ERGO1CAP41 PO; +HALO5TAB PO; -HLD5 PO; -LORA2INJ19 IM; -MAGNSUS5 PO; +NITR-5 PO; -QUET1TAB10 PO; +QUET1TAB9 PO; +SENN-65 PO; -SODI1000 PO; +SODI1TAB PO; -SODIENE PR
[2017-08-19 10:41] LABS: BASO % 0.7 %; BASO ABS # 0.06 K/uL (0-0.2); COMPLETE YES; EOS % 12.2 %; HEMATOCRIT 37.8 % (37-47); IG% 0.2 %; LYMPH % 37.5 %; LYMPH ABS # 3.14 K/uL (1.2-3.4); MEAN CELL VOLUME 96.7 fL (80-100); MEAN CORPUSCULAR HGB CONC 34.1 g/dl (32-36); MEAN PLATELET VOLUME 9.7 fL (7.4-10.4); MONO % 14.6 %; NEUT % 34.8 %; PLATELET COUNT 448 K/uL (130-400); RED BLOOD COUNT 3.91 M/uL (4.2-5.4); WHITE BLOOD COUNT 8.38 K/uL (4.8-10.8)
[2017-08-19 10:47] LABS: ALT/SGPT 10 U/L (12-78); BLOOD UREA NITROGEN 6 mg/dl (7-18); BUN/CREATININE RATIO 14.3 (10-20); CALCIUM 8.4 mg/dl (8.5-10.1); CARBON DIOXIDE 27 mmol/L (21-32); CHLORIDE 92 mmol/L (98-107); CREATININE 0.39 mg/dl (0.60-1.20); GLUCOSE 66 mg/dl (70-99); POTASSIUM 3.8 mmol/L (3.5-5.1); SODIUM 128 mmol/L (136-145)
[2017-08-19 10:50] LABS: ALB/GLOB RATIO 0.6 (0.9-2); ALKALINE PHOSPHATASE 88 U/L (45-117); AST/SGOT 15 U/L (15-37)
== END ==
LOC: C.LABUPHEI 10:00
PROVIDERS: ATTEND Nurse Practitioner Family
DX: R11.0 Nausea (principal)

== ENCOUNTER 2017-09-27 05:00 | Inpatient (IN) | payer OTHER ==
[~2017-09-27] VITALS: Ht 152.4 cm; Wt 63.0 kg
[2017-09-27] VITALS (9 sets, daily range): BP systolic 100–183; BP diastolic 65–108; PULSE 93–107; TEMP 36.7–37.6; O2SAT 93–97; Ht 152.4 cm; Wt 63.0 kg
[~2017-09-27 05:00] MED LIST changes: -ERGO1CAP41 PO; +ERGO500011 PO; +RISP0.5T9 PO
[2017-09-27] MEDS ORDERED: SODIUM CHLORIDE 0.9% 1000ML 1,000 ML IV STA (05:11)
[2017-09-27] MEDS ORDERED: ONDANSETRON INJ 2 MG/ML 2 ML VIAL IV STA ×2 (05:11→05:17)
--- NOTE | 2017-09-27 05:25 | EMERGENCY ROOM VISIT NOTE ---
History Report prepared by Konstantin: Yashira Huerta Under the Supervision of: Dr. Syed Gale D.O. 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 The patient presents to the ED by EMS. She was given Zofran in route. The patient is from [facility]. The patient vomited 2 times around 0200. The vomit was brown. The patient also reports that she has had black stool. She reports being fatigued. The history is limited due to the patient's dementia. 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 A total of ten systems were reviewed and were otherwise negative. Past Medical & Surgical Medical Problems: (1) A-fib (2) Agitation (3) Alzheimer's disease (4) Atrial Fibrillation (5) Bipolar Disorder, Unspecified (6) Dementia (7) Diverticulosis Colon (W/O Ment Of Hemorrhage) (8) Elevated troponin (9) Esophageal Reflux (10) Fall (11) Hyperlipidemia Nec/Nos (12) Hypertension Nos (13) Hypomagnesemia (14) Hyponatremia Family History Diabetes mellitus Heart disease Other endocrine and metabolic diseases Social History Smoking Status: Former Smoker Alcohol Use: none Drug Use: none Marital Status: single Housing Status: long term Occupation Status: retired Current/Historical Medications Scheduled Acetaminophen Tab (Tylenol), 650 MG PO BID Artificial Tear Solution (Artificial Tears), 1 DROPS OPB BID Aspirin (Aspirin 81), 81 MG PO DAILY Atorvastatin (Lipitor), 80 MG PO QPM Carvedilol (Coreg), 6.25 MG PO BID Divalproex Sodium (Depakote Sprinkle), 250 MG PO BID Ergocalciferol (Vitamin D 82119 Unit), 1 CAP PO WK Ferrous Sulfate (Ferrous Sulfate), 325 MG PO BID Haloperidol (Haldol), 5 MG PO BID Lactase (Lactaid), 1 TAB PO AC Lactobacillus (Acidophilus), 100 MG PO BID Lorazepam (Ativan), 0.5 MG PO BID Magnesium Oxide (Mag-Ox), 400 MG PO BID Melatonin (Melatonin), 3 MG PO HS Omeprazole (Prilosec), 20 MG PO QAM Polyethylene Glycol 3350 (Miralax), 17 GM PO DAILY@1200 Quetiapine Fumarate (Seroquel), 100 MG PO HS Risperidone (Risperdal), 0.5 MG PO BID Senna (Senokot), 1 TAB PO BID Senna/Docusate Sod (Senokot S), 1 TAB PO BID Sertraline (Zoloft), 25 MG PO QAM Sodium Chloride (Sodium Chloride), 2 GM PO BID Scheduled PRN Acetaminophen (Tylenol), 650 MG PO Q6H PRN for Pain Haloperidol Lactate (Haldol), 5 MG IM Q4 PRN for SEVERE AGGITATION Allergies Coded Allergies: Chlordiazepoxide (Verified Allergy, Unknown, unk, 09/27/17) Clindamycin (Verified Allergy, Unknown, unknown, 09/27/17) Dairy (Unverified Allergy, Unknown, GI SYMPTOMS, 09/27/17) Erythromycin (Verified Allergy, Unknown, unk, 09/27/17) Honey (Verified Allergy, Unknown, unk, 09/27/17) Meperidine (Verified Allergy, Unknown, unk, 09/27/17) Metoprolol (Verified Allergy, Unknown, unk, 09/27/17) Paroxetine (Verified Allergy, Unknown, unk, 09/27/17) Peanut (Verified Allergy, Unknown, PEANUT BUTTER, 09/27/17) Sulfa Antibiotics (Verified Allergy, Unknown, `, 09/27/17) Venlafaxine (Verified Allergy, Unknown, unk, 09/27/17) Penicillins (Verified Adverse Reaction, Intermediate, NAUSEA, YEAST INFECTION, 09/27/17) Lactose Intolerance (GI) (Verified Adverse Reaction, Unknown, GI SYMPTOMS , 09/27/17) Physical Exam Vital Signs Date Time Temp Pulse Resp B/P (MAP) Pulse Ox O2 Delivery O2 Flow Rate FiO2 09/27/17 06:31 96 91 Room Air 09/27/17 05:20 105 09/27/17 05:11 93 Room Air 09/27/17 05:06 36.6 105 27 95/76 93 Room Air Physical Exam GENERAL: Interactive but mildly demented, but cooperative. Vomiting black coffee grounds. HENT: Normocephalic, atraumatic. Oropharynx unremarkable. EYES: Normal conjunctiva. Sclera non-icteric. NECK: Supple. No nuchal rigidity. FROM. No JVD. RESPIRATORY: Clear to auscultation. CARDIAC: Regular rate, normal rhythm. Extremities warm and well perfused. Pulses equal. ABDOMEN: Soft, non-distended. No tenderness to palpation. No rebound or guarding. No masses. RECTAL: Deferred. MUSCULOSKELETAL: Chest examination reveals no tenderness. The back is symmetrical on inspection without obvious abnormality. There is no CVA tenderness to palpation. No joint edema. LOWER EXTREMITIES: Calves are equal size bilaterally and non-tender. No edema. No discoloration. NEURO: Normal sensorium. No sensory or motor deficits noted. SKIN: No rash or jaundice noted. Medical Decision & Procedures Laboratory Results 09/27/17 05:29 Red Blood Count 4.08, Mean Corpuscular Volume 94.4, Mean Corpuscular Hemoglobin 31.4, Mean Corpuscular Hemoglobin Concent 33.2, Mean Platelet Volume 8.6, Neutrophils (%) (Auto) 77.6, Lymphocytes (%) (Auto) 11.7, Monocytes (%) (Auto) 7.7, Eosinophils (%) (Auto) 2.2, Basophils (%) (Auto) 0.2, Neutrophils # (Auto) 8.28, Lymphocytes # (Auto) 1.25, Monocytes # (Auto) 0.82, Eosinophils # (Auto) 0.24, Basophils # (Auto) 0.02 09/27/17 05:29 Test 09/27/17 05:29 White Blood Count 10.67 K/uL (4.8-10.8) Red Blood Count 4.08 M/uL (4.2-5.4) Hemoglobin 12.8 g/dL (12.0-16.0) Hematocrit 38.5 % (37-47) Mean Corpuscular Volume 94.4 fL (80-100) Mean Corpuscular Hemoglobin 31.4 pg (25-34) Mean Corpuscular Hemoglobin Concent 33.2 g/dl (32-36) Platelet Count 515 K/uL (130-400) Mean Platelet Volume 8.6 fL (7.4-10.4) Neutrophils (%) (Auto) 77.6 % Lymphocytes (%) (Auto) 11.7 % Monocytes (%) (Auto) 7.7 % Eosinophils (%) (Auto) 2.2 % Basophils (%) (Auto) 0.2 % Neutrophils # (Auto) 8.28 K/uL (1.4-6.5) Lymphocytes # (Auto) 1.25 K/uL (1.2-3.4) Monocytes # (Auto) 0.82 K/uL (0.11-0.59) Eosinophils # (Auto) 0.24 K/uL (0-0.5) Basophils # (Auto) 0.02 K/uL (0-0.2) RDW Standard Deviation 46.2 fL (36.4-46.3) RDW Coefficient of Variation 13.4 % (11.5-14.5) Immature Granulocyte % (Auto) 0.6 % Immature Granulocyte # (Auto) 0.06 K/uL (0.00-0.02) Prothrombin Time 10.8 SECONDS (9.0-12.0) Prothromb Time International Ratio 1.0 (0.9-1.1) Activated Partial Thromboplast Time 27.7 SECONDS (21.0-31.0) Partial Thromboplastin Ratio 1.1 Anion Gap 4.0 mmol/L (3-11) Estimated GFR () 117.6 Estimated GFR (Non- 101.5 BUN/Creatinine Ratio 45.7 (10-20) Calcium Level 8.8 mg/dl (8.5-10.1) Total Bilirubin 0.4 mg/dl (0.2-1) Direct Bilirubin < 0.1 mg/dl (0-0.2) Aspartate Amino Transf (AST/SGOT) 13 U/L (15-37) Alanine Aminotransferase (ALT/SGPT) 12 U/L (12-78) Alkaline Phosphatase 107 U/L (45-117) Total Protein 7.1 gm/dl (6.4-8.2) Albumin 2.5 gm/dl (3.4-5.0) Lipase 57 U/L (73-393) Laboratory results reviewed by me Medications Administered Medications (Trade) Dose Ordered Sig/Trudi Route Start Time Stop Time Status Last Admin Dose Admin Sodium Chloride 1,000 ml @ 999 mls/hr Q1H1M STAT IV 09/27/17 05:11 09/27/17 06:11 DC 09/27/17 05:11 999 MLS/HR Ondansetron HCl (Zofran Inj) 4 mg NOW STAT IV 09/27/17 05:11 09/27/17 05:14 DC 09/27/17 05:11 4 MG Pantoprazole Sodium 40 mg/ Syringe 10 ml @ 5 mls/min NOW ONCE IV 09/27/17 05:30 09/27/17 05:31 DC 09/27/17 05:42 5 MLS/MIN ED Course 0504: The patient was evaluated in room B3B. A complete history and physical exam was performed. 0511: Zofran Inj 4 mg IV, NSS 1000 ml @ 999 mls/hr IV. 0514: I spoke with the patient's sister and POViktor Walker. 0530: Pantoprazole Sodium 40 mg/Syringe 10 ml @ 5 mls/min IV. 0614: I discussed the patient's case with Dr. Carrillo [facility]. The patient will be evaluated for further treatment and disposition. Medical Decision Differential diagnoses include but are not limited to; gastritis, ulcer, upper GI bleed, esophagitis, dehydration, anemia. I spoke with the patient's power of collections attorney Miss Walker who states the patient is comfort measures but if the patient required blood she would be okay with the patient being administered blood. Patient was given IV fluids IV Zofran IV Protonix. [facility]; patient's abdomen soft at this time very difficult examination does not allow you to touch her; I do not suspect SBO; Medication Reconcilliation Current Medication List: was personally reviewed by me Blood Pressure Screening Patient's blood pressure: Normal blood pressure Blood pressure disposition: Did not require urgent referral Consults Time Called: [phone] Consulting Physician: Dr. Carrillo [facility] Returned Call: 06 Discussed the patient's case. The patient will be evaluated for further treatment and disposition. Impression Primary Impression: Vomiting Additional Impression: Gastritis Scribe Attestation The scribe's documentation has been prepared under my direction and personally reviewed by me in its entirety. I confirm that the note above accurately reflects all work, treatment, procedures, and medical decision making performed by me. Departure Information Dispostion Being Evaluated By Hospitalist Referrals Hui Lacy (PCP) Patient Instructions [facility] Problem Qualifiers
[2017-09-27] MEDS ORDERED: PANTOprazole INJ 40 MG in SYRINGE 0 ML IV ONE (05:30)
[2017-09-27 05:49] LABS: BASO % 0.2 %; BASO ABS # 0.02 K/uL (0-0.2); COMPLETE YES; EOS % 2.2 %; HEMATOCRIT 38.5 % (37-47); IG% 0.6 %; LYMPH % 11.7 %; LYMPH ABS # 1.25 K/uL (1.2-3.4); MEAN CELL VOLUME 94.4 fL (80-100); MEAN CORPUSCULAR HEMOGLOBIN 31.4 pg (25-34); MEAN CORPUSCULAR HGB CONC 33.2 g/dl (32-36); MEAN PLATELET VOLUME 8.6 fL (7.4-10.4); MONO % 7.7 %; NEUT % 77.6 %; PLATELET COUNT 515 K/uL (130-400); RED BLOOD COUNT 4.08 M/uL (4.2-5.4); WHITE BLOOD COUNT 10.67 K/uL (4.8-10.8)
[2017-09-27 06:00] LABS: PARTIAL THROMBOPLASTIN RATIO 1.1; PROTHROMBIN TIME (PATIENT) 10.8 SECONDS (9.0-12.0)
[2017-09-27 06:08] LABS: ALT/SGPT 12 U/L (12-78); AST/SGOT 13 U/L (15-37); BLOOD UREA NITROGEN 21 mg/dl (7-18); BUN/CREATININE RATIO 45.7 (10-20); CALCIUM 8.8 mg/dl (8.5-10.1); CARBON DIOXIDE 34 mmol/L (21-32); CHLORIDE 95 mmol/L (98-107); CREATININE 0.46 mg/dl (0.60-1.20); GLUCOSE 109 mg/dl (70-99); SODIUM 133 mmol/L (136-145)
[2017-09-27 06:11] LABS: ALKALINE PHOSPHATASE 107 U/L (45-117)
[2017-09-27] MEDS ORDERED: MELA1TAB49 PO (06:40)
[2017-09-27] MEDS ORDERED: DIVA125C PO (06:42)
[2017-09-27] MEDS ORDERED: CARV6.252 PO (06:43)
[2017-09-27] MEDS ORDERED: LORA-741 PO ×2 (06:44→06:53)
[2017-09-27] MEDS ORDERED: SENN-61 PO (06:46)
[2017-09-27] MEDS ORDERED: ONDA4TAB46 PO (06:47)
[2017-09-27] MEDS ORDERED: NTRS PO (06:47)
[2017-09-27] MEDS ORDERED: LORA2INJ19 IM (06:50)
[2017-09-27] MEDS ORDERED: ACET325T96 PO ×2 (06:51)
[2017-09-27] MEDS ORDERED: BENZ-88 PO (06:55)
[2017-09-27] MEDS ORDERED: ARTISOL12 OPB (06:55)
--- NOTE | 2017-09-27 07:39 | History and Physical ---
History & Physical Date & Time of Service: Sep 27, 2017 at 07:39 Chief Complaint: Abdominal Pain Primary Care Physician: Hui Lacy History of Present Illness Source: clinic records, hospital records This is an unfortunate 67 yo F with past medical hx of dementia, Schizophrenia , Chronic Hyponatremia , mood disorder -resident at [facility] -sent to ER today as nursing noted pt to have coffee ground emesis no History could be obtained form pt due to advanced dementia information obtained for ER record in the ER pt remains stable hemodynamically no episode of hematemesis or melena Hb 12/Hct 38.8 , chronic hyponatremia Na 133, BUN 21 /Cr 0.46 pt admitted to tele ordered for Protonix gtt NPO GI eval requested Past Medical/Surgical History Medical Problems: (1) A-fib Status: Chronic (2) Alzheimer's disease Status: Chronic (3) Atrial Fibrillation Status: Chronic (4) Bipolar Disorder, Unspecified Status: Chronic (5) Dementia Status: Chronic (6) Diverticulosis Colon (W/O Ment Of Hemorrhage) Status: Resolved (7) Esophageal Reflux Status: Chronic (8) Hyperlipidemia Nec/Nos Status: Chronic (9) Hypertension Nos Status: Chronic (10) Hypomagnesemia Status: Chronic Family History Diabetes mellitus Heart disease Other endocrine and metabolic diseases Social History Smoking Status: Former Smoker Drug Use: none Marital Status: single Housing status: half-way Occupational Status: retired Immunizations History of Influenza Vaccine: No History of Tetanus Vaccine?: Yes History of Pneumococcal: No History of Hepatitis B Vaccine: No Allergies Coded Allergies: Chlordiazepoxide (Verified Allergy, Unknown, unk, 09/27/17) Clindamycin (Verified Allergy, Unknown, unknown, 09/27/17) Erythromycin (Verified Allergy, Unknown, unk, 09/27/17) Honey (Verified Allergy, Unknown, unk, 09/27/17) Meperidine (Verified Allergy, Unknown, unk, 09/27/17) Metoprolol (Verified Allergy, Unknown, unk, 09/27/17) Paroxetine (Verified Allergy, Unknown, unk, 09/27/17) Peanut (Verified Allergy, Unknown, PEANUT BUTTER, 09/27/17) Sulfa Antibiotics (Verified Allergy, Unknown, `, 09/27/17) Venlafaxine (Verified Allergy, Unknown, unk, 09/27/17) Penicillins (Verified Adverse Reaction, Intermediate, NAUSEA, YEAST INFECTION, 09/27/17) Lactose Intolerance (GI) (Verified Adverse Reaction, Unknown, GI SYMPTOMS , 09/27/17) Home Medications Scheduled Acetaminophen Tab (Tylenol), 650 MG PO BID Artificial Tear Solution (Artificial Tears), 1 DROPS OPB BID Benztropine Mesylate (Benztropine Mesylate), 1 MG PO BID Carvedilol (Coreg), 6.25 MG PO BID Divalproex Sodium (Depakote Sprinkle), 250 MG PO BID Enteral Nutrition Formula (Nutritional Supplement), 1 DOSE PO TID Ferrous Sulfate (Ferrous Sulfate), 325 MG PO BID Lorazepam (Ativan), 0.5 MG PO BID Melatonin (Melatonin), 3 MG PO HS Omeprazole (Prilosec), 20 MG PO QAM Polyethylene Glycol 3350 (Miralax), 17 GM PO DAILY@1200 Quetiapine Fumarate (Seroquel), 100 MG PO HS Risperidone (Risperdal), 0.5 MG PO BID Senna (Senokot), 1 TAB PO BID Sodium Chloride (Sodium Chloride), 2 GM PO BID Scheduled PRN Acetaminophen Tab (Tylenol), 650 MG PO Q4 PRN for temp>101 Acetaminophen Tab (Tylenol), 650 MG PO Q6 PRN for Mild Pain Lorazepam (Ativan), 0.25 ML IM BID PRN for Anxiety/Agitation Lorazepam (Ativan), 0.5 MG PO BID PRN for Anxiety/Agitation Ondansetron Hcl (Zofran), 4 MG PO Q8 PRN for Nausea Review of Systems unable to obtain due to pt's dementia Physical Exam Vital Signs Date Time Temp Pulse Resp B/P (MAP) Pulse Ox O2 Delivery O2 Flow Rate FiO2 09/27/17 06:31 96 91 Room Air 09/27/17 05:20 105 09/27/17 05:11 93 Room Air 09/27/17 05:06 36.6 105 27 95/76 93 Room Air General Appearance: + pertinent finding (confused , refusing to be touched or to allow physical exam , shouting " get out" ) Head: normocephalic Respiratory/Chest: + pertinent finding (could not be done , pt does not allow to touch ) Cardiovascular: + pertinent finding (could not be done for pts refusal /) Abdomen/GI: + pertinent finding (un coperative , gets agitated with attempt to exam ) Neurologic/Psych: + disoriented, + pertinent finding (confused ,agitated, advanced dementia with behavioral disturbance ) Diagnostics Laboratory Results Results Past 24 Hours Test 09/27/17 05:29 Range/Units White Blood Count 10.67 4.8-10.8 K/uL Red Blood Count 4.08 4.2-5.4 M/uL Hemoglobin 12.8 12.0-16.0 g/dL Hematocrit 38.5 37-47 % Mean Corpuscular Volume 94.4 80-100 fL Mean Corpuscular Hemoglobin 31.4 25-34 pg Mean Corpuscular Hemoglobin Concent 33.2 32-36 g/dl Platelet Count 515 130-400 K/uL Mean Platelet Volume 8.6 7.4-10.4 fL Neutrophils (%) (Auto) 77.6 % Lymphocytes (%) (Auto) 11.7 % Monocytes (%) (Auto) 7.7 % Eosinophils (%) (Auto) 2.2 % Basophils (%) (Auto) 0.2 % Neutrophils # (Auto) 8.28 1.4-6.5 K/uL Lymphocytes # (Auto) 1.25 1.2-3.4 K/uL Monocytes # (Auto) 0.82 0.11-0.59 K/uL Eosinophils # (Auto) 0.24 0-0.5 K/uL Basophils # (Auto) 0.02 0-0.2 K/uL RDW Standard Deviation 46.2 36.4-46.3 fL RDW Coefficient of Variation 13.4 11.5-14.5 % Immature Granulocyte % (Auto) 0.6 % Immature Granulocyte # (Auto) 0.06 0.00-0.02 K/uL Prothrombin Time 10.8 9.0-12.0 SECONDS Prothromb Time International Ratio 1.0 0.9-1.1 Activated Partial Thromboplast Time 27.7 21.0-31.0 SECONDS Partial Thromboplastin Ratio 1.1 Sodium Level 133 136-145 mmol/L Potassium Level 4.0 3.5-5.1 mmol/L Chloride Level 95 98-107 mmol/L Carbon Dioxide Level 34 21-32 mmol/L Anion Gap 4.0 3-11 mmol/L Blood Urea Nitrogen 21 7-18 mg/dl Creatinine 0.46 0.60-1.20 mg/dl Estimated GFR () 117.6 Estimated GFR (Non- 101.5 BUN/Creatinine Ratio 45.7 10-20 Random Glucose 109 70-99 mg/dl Calcium Level 8.8 8.5-10.1 mg/dl Total Bilirubin 0.4 0.2-1 mg/dl Direct Bilirubin < 0.1 0-0.2 mg/dl Aspartate Amino Transf (AST/SGOT) 13 15-37 U/L Alanine Aminotransferase (ALT/SGPT) 12 12-78 U/L Alkaline Phosphatase 107 45-117 U/L Total Protein 7.1 6.4-8.2 gm/dl Albumin 2.5 3.4-5.0 gm/dl Lipase 57 73-393 U/L CXR normal Impression Assessment and Plan GI BLEED /COFFEE GROUND EMESIS : sent [facility] with episode of coffee ground emesis no episode since arrival to ED so far NPO , Protonix GTT follow [facility] GI eval requested ADVANCED DEMENTIA hx of CVA , confusion , with behavioral disturbance observe fall precaution PRN Haldol ordered for agitation low bed SCHIZOPHRENIA /MOOD DISORDER cont out pt meds CHRONIC HYPONATREMIA IVF with NSS repeat BMP HTN BP was elevated transiently due to agitation cont out pt meds PRN Hydralazine ordered DNR /DNI DVT PROPHYLAXIS : SCD AND TEDS DISPOSITION ; expected to return to [facility] when medically stable Level of Care Telemetry Resuscitation Status DO NOT RESUSCITATE VTE Prophylaxis VTE Risk Assessment Done? Y/N: Yes Risk Level: Moderate Given or contraindicated: T.E.D. Stockings, SCD's
[2017-09-27] MEDS ORDERED: LORAZEPAM 0.5 MG TAB PO PRN (07:45)
[2017-09-27] MEDS ORDERED: PANTOprazole INJ 80 MG in DEXTROSE 5% 100ML IV SCH (08:00)
[2017-09-27] MEDS ORDERED: PANTOprazole INJ 40 MG in DEXTROSE 5% 100ML IV SCH (08:15)
--- NOTE | 2017-09-27 08:20 | DIAGNOSTIC IMAGING REPORT ---
CHEST ONE VIEW PORTABLE HISTORY: 67 years-old Female SOB acute shortness of breath COMPARISON: Chest radiograph 11/06/2016 TECHNIQUE: Portable upright AP view of the chest FINDINGS: Cardiac silhouette is mildly enlarged, unchanged. Large hiatal hernia with majority of the stomach within the thoracic cavity redemonstrated. Linear subsegmental left basilar opacities are unchanged suggesting atelectasis or scarring. There is mild pulmonary vascular congestion. No pneumothorax, pleural effusion or overt pulmonary edema. No lobar airspace consolidation. Bones of the chest appear demineralized and are grossly intact. IMPRESSION: 1. No acute cardiopulmonary process. 2. Large hiatal hernia redemonstrated. The above report was generated using voice recognition software. It may contain grammatical, syntax or spelling errors. Electronically signed by: Roberto Frank M.D. 09/27/2017 8:19 AM Dictated Date/Time: 09/27/2017 8:18 AM
[2017-09-27] MEDS ORDERED: IV FLUIDS COMPLETED PRN (08:30)
[2017-09-27] MEDS ORDERED: SODIUM CHLORIDE 0.9% 1000ML 1,000 ML IV SCH (08:45)
[2017-09-27] MEDS ORDERED: ENTERAL NUTRITION FORMULA PO SCH (09:00)
[2017-09-27] MEDS ORDERED: NON-FORMULARY MEDICATION (Omeprazole (Prilosec) 20 MG) PO SCH (09:00)
[2017-09-27] MEDS: LORAZEPAM 0.5 MG TAB PO SCH (09:40)
[2017-09-27] MEDS: SENNA 8.6 MG TAB PO SCH (09:40)
[2017-09-27] MEDS: FERROUS SULFATE 325 MG TAB PO SCH (09:41)
[2017-09-27] MEDS: CARVEDILOL 6.25 MG TAB PO SCH (09:41)
[2017-09-27] MEDS: DIVALPROEX SODIUM SPRINKLE 125 MG CAP PO SCH (09:41)
[2017-09-27] MEDS: RISPERIDONE 0.5 MG TAB PO SCH (09:41)
[2017-09-27] MEDS: BENZTROPINE MESYLATE 1 MG TAB PO SCH (09:41)
[2017-09-27] MEDS: SODIUM CHLORIDE 1 GM TAB PO SCH (09:42)
[2017-09-27] MEDS: ARTIFICIAL TEARS OP SOLN OP SCH ×4 (09:44→19:59)
[2017-09-27] MEDS: BOOST VANILLA PO SCH ×4 (12:00→15:35)
--- NOTE | 2017-09-27 12:18 | Gastrointestinal Consultation ---
Gastrointestinal Consultation Date of Consultation: Sep 27, 2017 Attending Physician: Aliza Walker Reason for Consultation: GIB History of Present Illness Patient is a 67 year old female with medical comorbids of Dementia, GERD, Depression, presented to the hospital with abdominal pain and vomiting. Hx is very ;limited due to patient underlying dementia. GI consulted for possible GI bleeding. Patient today denies any abdominal pain and no documented vomiting in the hospital. No melena or evidence of GI bleeding at this time. Past Medical/Surgical History Medical Problems: (1) Aggressive behavior Status: Acute (2) Aggressive behavior Status: Acute (3) Altered mental status Status: Acute (4) Bipolar disorder Status: Acute (5) Change in mental status Status: Acute (6) Closed head injury Status: Acute (7) Fall Status: Acute (8) Gastritis Status: Acute (9) Head injury Status: Acute (10) Homicidal ideation Status: Acute (11) Hyponatremia Status: Acute (12) Injury of left foot Status: Acute (13) SD (myocardial infarction) Status: Acute (14) Mood disorder Status: Acute (15) Multiple contusions Status: Acute (16) Right rib fracture Status: Acute (17) Schizophrenia Status: Acute (18) Stroke Status: Acute (19) Suicidal ideation Status: Acute (20) Unresponsive episode Status: Acute (21) UTI (urinary tract infection) Status: Acute (22) Vomiting Status: Acute (23) Weakness Status: Acute (24) Weakness Status: Acute Past Medical History: As above Past Surgical History: Unable to obtain Family History Diabetes mellitus Heart disease Other endocrine and metabolic diseases Social History Smoking Status: Former Smoker Alcohol Use: none Drug Use: none Marital Status: single Housing Status: care home Occupation Status: retired Allergies Coded Allergies: Chlordiazepoxide (Verified Allergy, Unknown, unk, 09/27/17) Clindamycin (Verified Allergy, Unknown, unknown, 09/27/17) Erythromycin (Verified Allergy, Unknown, unk, 09/27/17) Honey (Verified Allergy, Unknown, unk, 09/27/17) Meperidine (Verified Allergy, Unknown, unk, 09/27/17) Metoprolol (Verified Allergy, Unknown, unk, 09/27/17) Paroxetine (Verified Allergy, Unknown, unk, 09/27/17) Peanut (Verified Allergy, Unknown, PEANUT BUTTER, 09/27/17) Sulfa Antibiotics (Verified Allergy, Unknown, `, 09/27/17) Venlafaxine (Verified Allergy, Unknown, unk, 09/27/17) Penicillins (Verified Adverse Reaction, Intermediate, NAUSEA, YEAST INFECTION, 09/27/17) Lactose Intolerance (GI) (Verified Adverse Reaction, Unknown, GI SYMPTOMS , 09/27/17) Current Medications Home Meds and Scripts Medications Dose Route/Sig Max Daily Dose Days Date Category Dose Instructions Artificial Tears (Artificial Tear Solution) 1 Vita Vita 1 Drops OPB BID 09/27/17 Reported Benztropine Mesylate 1 Mg Tab 1 Mg PO BID 09/27/17 Reported Ativan (Lorazepam) 0.5 Mg Tab 0.5 Mg PO BID PRN 09/27/17 Reported if patient refuses give im Tylenol (Acetaminophen) 325 Mg Tab 650 Mg PO Q6 PRN 09/27/17 Reported pain rated 1-6 do not exceed 3gm/24hr Tylenol (Acetaminophen) 325 Mg Tab 650 Mg PO Q4 PRN 09/27/17 Reported dont exceed 3gm/24hr Ativan (Lorazepam) 2 Mg/Ml Inj 0.25 Ml IM BID PRN 09/27/17 Reported give if patient refuses to take po Zofran (Ondansetron HCl) 4 Mg Tab 4 Mg PO Q8 PRN 09/27/17 Reported Nutritional Supplement (Enteral Nutritional Formula) Ea 1 Dose PO TID 09/27/17 Reported juice supplement Senokot (Senna) 8.6 Mg Tab 1 Tab PO BID 09/27/17 Reported Risperdal (Risperidone) 0.5 Mg Tab 0.5 Mg PO BID 14 09/27/17 Reported last dose 10/07/17 in am Ativan (Lorazepam) 0.5 Mg Tab 0.5 Mg PO BID 09/27/17 Reported Coreg (Carvedilol) 6.25 Mg Tab 6.25 Mg PO BID 09/27/17 Reported Depakote Sprinkle (Divalproex Sodium) 125 Mg Cap 250 Mg PO BID 09/27/17 Reported Melatonin 3 Mg Tab 3 Mg PO HS 09/27/17 Reported Sodium Chloride 1 Gm Tab 2 Gm PO BID 05/16/17 Reported Seroquel (Quetiapine Fumarate) 100 Mg Tab 100 Mg PO HS 05/16/17 Reported Ferrous Sulfate 325 Mg Tab 325 Mg PO BID 11/06/16 Reported Prilosec (Omeprazole) 20 Mg Capcr 20 Mg PO QAM 11/06/16 Reported Miralax (Polyethylene Glycol 3350) 1 Pow Pow 17 Gm PO DAILY@1200 11/06/16 Reported Tylenol (Acetaminophen) 325 Mg Tab 650 Mg PO BID 08/03/14 Reported Review of Systems Constitutional: No fever, No chills ENT: No trouble swallowing, No pain on swallowing Cardiac: No chest pain, No edema Abdomen: + see HPI Physical Exam Date Time Temp Pulse Resp B/P (MAP) Pulse Ox O2 Delivery O2 Flow Rate FiO2 09/27/17 11:17 36.8 93 18 100/68 (79) 93 09/27/17 09:32 97 Room Air 09/27/17 09:21 37.3 107 20 115/65 09/27/17 08:48 37.3 107 18 115/65 (82) 97 09/27/17 07:59 105 09/27/17 07:39 93 16 94 Room Air 09/27/17 06:31 96 91 Room Air 09/27/17 05:20 105 09/27/17 05:11 93 Room Air 09/27/17 05:06 36.6 105 27 95/76 93 Room Air General Appearance: no apparent distress Eyes: PERRL Neck: supple, trachea midline Respiratory/Chest: lungs clear, normal breath sounds Cardiovascular: regular rate, rhythm, no edema Abdomen: normal bowel sounds, non tender, soft Neurologic/Psych: alert Skin: normal color, no jaundice Laboratory Results Last 24 Hours Test 09/27/17 05:29 White Blood Count 10.67 K/uL Red Blood Count 4.08 M/uL Hemoglobin 12.8 g/dL Hematocrit 38.5 % Mean Corpuscular Volume 94.4 fL Mean Corpuscular Hemoglobin 31.4 pg Mean Corpuscular Hemoglobin Concent 33.2 g/dl Platelet Count 515 K/uL Mean Platelet Volume 8.6 fL Neutrophils (%) (Auto) 77.6 % Lymphocytes (%) (Auto) 11.7 % Monocytes (%) (Auto) 7.7 % Eosinophils (%) (Auto) 2.2 % Basophils (%) (Auto) 0.2 % Neutrophils # (Auto) 8.28 K/uL Lymphocytes # (Auto) 1.25 K/uL Monocytes # (Auto) 0.82 K/uL Eosinophils # (Auto) 0.24 K/uL Basophils # (Auto) 0.02 K/uL RDW Standard Deviation 46.2 fL RDW Coefficient of Variation 13.4 % Immature Granulocyte % (Auto) 0.6 % Immature Granulocyte # (Auto) 0.06 K/uL Prothrombin Time 10.8 SECONDS Prothromb Time International Ratio 1.0 Activated Partial Thromboplast Time 27.7 SECONDS Partial Thromboplastin Ratio 1.1 Sodium Level 133 mmol/L Potassium Level 4.0 mmol/L Chloride Level 95 mmol/L Carbon Dioxide Level 34 mmol/L Anion Gap 4.0 mmol/L Blood Urea Nitrogen 21 mg/dl Creatinine 0.46 mg/dl Estimated GFR () 117.6 Estimated GFR (Non- 101.5 BUN/Creatinine Ratio 45.7 Random Glucose 109 mg/dl Calcium Level 8.8 mg/dl Total Bilirubin 0.4 mg/dl Direct Bilirubin < 0.1 mg/dl Aspartate Amino Transf (AST/SGOT) 13 U/L Alanine Aminotransferase (ALT/SGPT) 12 U/L Alkaline Phosphatase 107 U/L Total Protein 7.1 gm/dl Albumin 2.5 gm/dl Lipase 57 U/L Impression Patient is a 67 year old female with dementia, bed-bound, GERD, sent from care home for abdominal pain and ? Coffee ground emesis. Her Hgb is normal and at baseline of >12. No evidence of further emesis in the hospital and documented melena. Likely has Esophagitis, MW or less likely PUD. Spoke to the NOK, the sister and explained in details regarding her care, explained regarding EGD to make the diagnosis, rsik, benefit and alternatives. At this point no evidence of active GI bleed so she wants to hold on pursuing any endoscopy and opted for medical therapy. Plan Continue IV PPI for today and then can switch to PO BID for 2 weeks then go to once daily. Clear liquid diet today and repeat CBC tomorrow AM, if H/H remains stable then will advance to regular diet. If any drop in H/H will reconsider EGD. Avoid NSAIDs. Antireflux measures (elevate HOB)
[2017-09-27 14:49] LABS: HEMATOCRIT 34.6 % (37-47)
[2017-09-27] MEDS: PANTOprazole INJ 40 MG in DEXTROSE 5% 100ML IV SCH ×2 (15:09→19:52)
[2017-09-27] MEDS: LORAZEPAM INJ 0.5 MG in SYRINGE 0.75 ML IV PRN ×2 (15:35→21:21)
[2017-09-27] MEDS ORDERED: MoRPHine SULFATE 2 MG/ML CARP IV PRN (16:15)
[2017-09-27] MEDS ORDERED: HydrALAZINE HCL 20 MG/ML VIAL IV. PRN (16:15)
--- NOTE | 2017-09-27 16:19 | Progress Note ---
Progress Note Date of Service Sep 27, 2017. Progress Note pt vomited Coffee ground material small amount this evening was agitated earlier , became hypertensive pt evaluated at bedside has coffee ground material on her hospital ground Yelling " Get out" does not allow to touch her asked if she feels nauseous , or having abdominal pain pt gets agitated ,repeats " Get Out " earlier she reported to Nursing that her back hurts will order for NPO except for ice chips was ordered Clear liquid diet earlier, pt vomited Carmen Angelia Hb mild drop 12-> 11 , pt also getting IV NSS @ 100 given advanced co morbidities her POA does not want any procedure unless it is life saving cont to monitor in tele ordered for Low boy bed , fall precaution
[2017-09-27] MEDS: HALOPERIDOL LACTATE 5 MG/ML 1 ML VIAL IV PRN (17:28)
[2017-09-27] MEDS: ONDANSETRON INJ 2 MG/ML 2 ML VIAL IV PRN (17:43)
[2017-09-27] MEDS: QUETIAPINE FUMARATE 100 MG TAB PO SCH (20:35)
[2017-09-27] MEDS ORDERED: NON-FORMULARY MEDICATION (Melatonin 3 MG) PO SCH (21:00)
[2017-09-27 22:10] LABS: HEMATOCRIT 31.9 % (37-47)
[2017-09-28] VITALS (7 sets, daily range): BP systolic 139–193; BP diastolic 84–124; PULSE 91–109; TEMP 36.9–37.1; O2SAT 94–95
[2017-09-28] MEDS: PANTOprazole INJ 40 MG in DEXTROSE 5% 100ML IV SCH ×5 (01:55→20:14)
[2017-09-28] MEDS: HALOPERIDOL LACTATE 5 MG/ML 1 ML VIAL IV PRN (02:27)
[2017-09-28] MEDS: LORAZEPAM 2 MG/ML 1 ML VIAL IV PRN ×2 (03:12→20:15)
[2017-09-28 06:43] LABS: HEMATOCRIT 32.9 % (37-47); MEAN CELL VOLUME 93.7 fL (80-100); MEAN CORPUSCULAR HEMOGLOBIN 31.1 pg (25-34); MEAN CORPUSCULAR HGB CONC 33.1 g/dl (32-36); MEAN PLATELET VOLUME 8.8 fL (7.4-10.4); PLATELET COUNT 456 K/uL (130-400); RED BLOOD COUNT 3.51 M/uL (4.2-5.4); WHITE BLOOD COUNT 10.36 K/uL (4.8-10.8)
[2017-09-28 07:28] LABS: BUN/CREATININE RATIO 42.9 (10-20); CALCIUM 8.2 mg/dl (8.5-10.1); CREATININE 0.35 mg/dl (0.60-1.20); POTASSIUM 3.6 mmol/L (3.5-5.1)
[2017-09-28] MEDS: ARTIFICIAL TEARS OP SOLN OP SCH ×4 (11:12→20:15)
--- NOTE | 2017-09-28 11:49 | Gastroenterology Progress Note ---
Progress Note Date of Service: Sep 28, 2017 Subjective Pt evaluation today including: conversation w/ patient, conversation w/ family , physical exam 67 year old female with medical comorbids of Dementia, GERD, Depression, presented to the hospital with abdominal pain and brown vomiting. GI consulted for possible UGIB. Patient had another episode of vomiting yesterday, spoke to the nurse and indicated it was brown and not coffee ground. Denies abdominal pain and asking for her psych meds. Review of Systems Constitutional: No fever, No chills Cardiac: No chest pain Neuro: No paralysis, No weakness Medications Current Inpatient Medications Medications (Trade) Dose Ordered Sig/Trudi Route Start Time Stop Time Status Last Admin Dose Admin Ondansetron HCl (Zofran Inj) 4 mg Q6H PRN IV 09/27/17 07:45 10/27/17 07:44 09/27/17 17:43 4 MG Benztropine Mesylate (Cogentin Tab) 1 mg BID PO 09/27/17 09:00 10/27/17 08:59 Future Hold 09/27/17 09:41 1 MG Carvedilol (Coreg Tab) 6.25 mg BID PO 09/27/17 09:00 10/27/17 08:59 Future Hold 09/27/17 09:41 6.25 MG Divalproex Sodium (Depakote Sprinkle Cap) 250 mg BID PO 09/27/17 09:00 10/27/17 08:59 Future Hold 09/27/17 09:41 250 MG Ferrous Sulfate (Feosol Tab) 325 mg BID PO 09/27/17 09:00 10/27/17 08:59 Future Hold 09/27/17 09:41 325 MG Lorazepam (Ativan Tab) 0.5 mg BID PO 09/27/17 09:00 10/27/17 08:59 Future Hold 09/27/17 09:40 0.5 MG Lorazepam (Ativan Tab) 0.5 mg BID PRN PO 09/27/17 07:45 10/27/17 07:44 Future Hold Quetiapine Fumarate (seroQUEL TAB) 100 mg HS PO 09/27/17 21:00 10/27/17 20:59 Risperidone (Risperdal Tab) 0.5 mg BID PO 09/27/17 09:00 10/27/17 08:59 Future Hold 09/27/17 09:41 0.5 MG Senna (Senokot Tab) 8.6 mg BID PO 09/27/17 09:00 10/27/17 08:59 Future Hold 09/27/17 09:40 8.6 MG Sodium Chloride (Sodium Chloride Tab) 2 gm BID PO 09/27/17 09:00 10/27/17 08:59 Future Hold 09/27/17 09:42 2 GM Artificial Tears (Artificial Tears) 1 drops BID OP 09/27/17 09:00 10/27/17 08:59 09/27/17 19:59 1 DROPS Lorazepam (Ativan Inj) 0.5 mg Q4 PRN IV 09/27/17 08:00 10/27/17 07:59 09/28/17 03:12 0.5 MG Miscellaneous (Iv Fluids Completed) 1 ea PRN PRN N/A 09/27/17 08:30 09/27/18 08:29 09/27/17 19:40 1 EA Enteral Nutritional Formula (Boost) 1 can TIDM PO 09/27/17 12:00 10/27/17 11:59 Future Hold Pantoprazole Sodium 40 mg/ Dextrose 100 ml @ 20 mls/hr Q5H IV 09/27/17 15:00 10/27/17 14:59 09/28/17 11:12 20 MLS/HR Lorazepam 0.5 mg/ Syringe 1 ml @ 1 mls/min Q4H PRN IV 09/27/17 15:30 10/27/17 15:29 09/27/17 21:21 1 MLS/MIN Hydralazine HCl (HydrALAZINE INJ) 10 mg Q8 PRN IV. 09/27/17 16:15 10/27/17 16:14 Haloperidol Lactate (Haldol Inj) 2.5 mg Q6 PRN IV 09/27/17 16:15 10/27/17 16:14 09/28/17 02:27 2.5 MG Morphine Sulfate (MoRPHine SULFATE INJ) 1 mg Q4 PRN IV 09/27/17 16:15 10/11/17 16:14 Objective Vital Signs Date Time Temp Pulse Resp B/P (MAP) Pulse Ox O2 Delivery O2 Flow Rate FiO2 09/28/17 08:10 Room Air 09/28/17 08:07 37.0 99 18 167/95 (119) 95 Room Air 09/28/17 04:00 Room Air 09/28/17 00:01 Room Air 09/27/17 22:53 37.6 94 20 161/88 (112) 94 Room Air 09/27/17 20:00 Room Air 09/27/17 19:23 36.7 97 22 163/84 (110) 96 Room Air 09/27/17 16:12 99 151/95 (113) 09/27/17 16:00 Room Air 09/27/17 15:59 37.4 106 18 183/108 (133) 95 Room Air 09/27/17 12:00 93 Room Air Physical Exam General Appearance: no apparent distress Eyes: PERRL Respiratory/Chest: normal breath sounds, no respiratory distress Cardiovascular: regular rate, rhythm, no edema Abdomen: non tender, soft Neurologic/Psych: alert Laboratory Results Last 24 Hours Test 09/27/17 14:32 09/27/17 21:57 09/28/17 05:51 Hemoglobin 11.3 g/dL 10.3 g/dL 10.9 g/dL Hematocrit 34.6 % 31.9 % 32.9 % White Blood Count 10.36 K/uL Red Blood Count 3.51 M/uL Mean Corpuscular Volume 93.7 fL Mean Corpuscular Hemoglobin 31.1 pg Mean Corpuscular Hemoglobin Concent 33.1 g/dl RDW Standard Deviation 46.8 fL RDW Coefficient of Variation 13.6 % Platelet Count 456 K/uL Mean Platelet Volume 8.8 fL Sodium Level 131 mmol/L Potassium Level 3.6 mmol/L Chloride Level 97 mmol/L Carbon Dioxide Level 26 mmol/L Anion Gap 8.0 mmol/L Blood Urea Nitrogen 15 mg/dl Creatinine 0.35 mg/dl Est Creatinine Clear Calc Drug Dose 120.9 ml/min Estimated GFR () 128.7 Estimated GFR (Non- 111.0 BUN/Creatinine Ratio 42.9 Random Glucose 85 mg/dl Calcium Level 8.2 mg/dl Assessment and Plan 67 years old admitted with recurrent vomiting and possible coffee ground emesis. Initial H/H stable at baseline, had slight drop after hydration and hemodilution but now stable. The NOK yesterday wanted to montior clinically before deciding about EGD. I spoke to her again today and informed her about the H/H. She wants the EGD to be done and agreed for it. Recommendations: - Will plan for elective EGD tomorrow (no active ongoing GI bleeding today). - Clear liquid diet today and resume her home meds. - Continue IV PPI. - Monitor H/H. - XOCHITL (Sister: #[phone]) was explained in details about the risk, benefit and alternatives of the EGD and agreed for it.
[2017-09-28] MEDS: DIVALPROEX SODIUM SPRINKLE 125 MG CAP PO SCH (15:34)
[2017-09-28] MEDS: BENZTROPINE MESYLATE 1 MG TAB PO SCH (15:35)
[2017-09-28] MEDS: CARVEDILOL 6.25 MG TAB PO SCH (15:35)
[2017-09-28] MEDS: SODIUM CHLORIDE 1 GM TAB PO SCH (15:35)
[2017-09-28] MEDS: QUETIAPINE FUMARATE 100 MG TAB PO SCH (15:35)
[2017-09-28] MEDS: SENNA 8.6 MG TAB PO SCH (15:36)
[2017-09-28] MEDS: FERROUS SULFATE 325 MG TAB PO SCH (15:36)
[2017-09-28] MEDS: RISPERIDONE 0.5 MG TAB PO SCH (15:36)
[2017-09-28] MEDS: ONDANSETRON INJ 2 MG/ML 2 ML VIAL IV PRN (15:39)
[2017-09-28] MEDS: LORAZEPAM 0.5 MG TAB PO SCH (15:39)
--- NOTE | 2017-09-28 18:38 | Progress Note ---
Internal Med Progress Note Date of Service: Sep 28, 2017. Provider Documentation: SUBJECTIVE: remains confused , dis oriented , no further episode of Hematemesis H&H remains stable complains of abdominal pain OBJECTIVE: Vital Signs-as noted below Exam: General-elderly female , advanced dementia Eyes-sclera non icteric ENT-absence of teeth Lungs-no wheeze or rales Heart-regular S1/S2 Abdomen-soft, non tender Extremities-no lower ext edema Neuro-advanced dementia , confused , Lab data as noted below. ASSESSMENT & PLAN: GI BLEED sent form [facility] with report of coffee ground emesis had one episode yesterday no further episode in last 24 hrs H&H has mild drop on Protonix gtt appreciate GI eval possible EGD tomorrow ADVANCED DEMENTIA : with confusion , baseline behavioral issues observe fall precaution HX OF SCHIZOPHRENIA: cont out pt Psych meds with sips of water DNR /DNI DVT PROPHYLAXIS Scd and teds DISPOSITION return back to [facility] when medically stable Vital Signs: Date Time Temp Pulse Resp B/P (MAP) Pulse Ox O2 Delivery O2 Flow Rate FiO2 09/28/17 16:05 Room Air 09/28/17 15:58 100 146/98 (114) 09/28/17 15:31 37.1 109 20 193/124 (147) 95 Room Air 09/28/17 12:45 Room Air 09/28/17 12:05 36.9 106 20 147/84 (105) 95 Room Air 09/28/17 08:10 Room Air 09/28/17 08:07 37.0 99 18 167/95 (119) 95 Room Air 09/28/17 04:00 Room Air 09/28/17 00:01 Room Air 09/27/17 22:53 37.6 94 20 161/88 (112) 94 Room Air 09/27/17 20:00 Room Air 09/27/17 19:23 36.7 97 22 163/84 (110) 96 Room Air Lab Results: Results Past 24 Hours Test 09/27/17 21:57 09/28/17 05:51 Range/Units Hemoglobin 10.3 10.9 12.0-16.0 g/dL Hematocrit 31.9 32.9 37-47 % White Blood Count 10.36 4.8-10.8 K/uL Red Blood Count 3.51 4.2-5.4 M/uL Mean Corpuscular Volume 93.7 80-100 fL Mean Corpuscular Hemoglobin 31.1 25-34 pg Mean Corpuscular Hemoglobin Concent 33.1 32-36 g/dl RDW Standard Deviation 46.8 36.4-46.3 fL RDW Coefficient of Variation 13.6 11.5-14.5 % Platelet Count 456 130-400 K/uL Mean Platelet Volume 8.8 7.4-10.4 fL Sodium Level 131 136-145 mmol/L Potassium Level 3.6 3.5-5.1 mmol/L Chloride Level 97 98-107 mmol/L Carbon Dioxide Level 26 21-32 mmol/L Anion Gap 8.0 3-11 mmol/L Blood Urea Nitrogen 15 7-18 mg/dl Creatinine 0.35 0.60-1.20 mg/dl Est Creatinine Clear Calc Drug Dose 120.9 ml/min Estimated GFR () 128.7 Estimated GFR (Non- 111.0 BUN/Creatinine Ratio 42.9 10-20 Random Glucose 85 70-99 mg/dl Calcium Level 8.2 8.5-10.1 mg/dl
[2017-09-28] MEDS ORDERED: TRAMADOL HCL 50 MG TAB PO PRN (19:45)
[2017-09-28] MEDS ORDERED: TRAMADOL HCL 50 MG TAB ONE (19:45)
[2017-09-29] VITALS: O2SAT 95
[2017-09-29] MEDS: LORAZEPAM INJ 0.5 MG in SYRINGE 0.75 ML IV PRN (01:23)
[2017-09-29] MEDS: PANTOprazole INJ 40 MG in DEXTROSE 5% 100ML IV SCH ×2 (01:42→06:28)
[2017-09-29 07:38] LABS: HEMATOCRIT 31.8 % (37-47); MEAN CELL VOLUME 92.4 fL (80-100); MEAN CORPUSCULAR HEMOGLOBIN 31.7 pg (25-34); MEAN CORPUSCULAR HGB CONC 34.3 g/dl (32-36); MEAN PLATELET VOLUME 8.5 fL (7.4-10.4); PLATELET COUNT 423 K/uL (130-400); RED BLOOD COUNT 3.44 M/uL (4.2-5.4); WHITE BLOOD COUNT 11.48 K/uL (4.8-10.8)
[2017-09-29 08:00] VITALS: BP 168/99; PULSE 90; TEMP 37.4; O2SAT 97
[2017-09-29 08:11] LABS: BUN/CREATININE RATIO 24.2 (10-20); CALCIUM 8.2 mg/dl (8.5-10.1); CREATININE 0.4 mg/dl (0.60-1.20); POTASSIUM 3.5 mmol/L (3.5-5.1)
[2017-09-29] MEDS: ARTIFICIAL TEARS OP SOLN OP SCH ×4 (09:00→21:04)
--- NOTE | 2017-09-29 09:50 | Progress Note ---
Progress Note Date of Service Sep 29, 2017. Progress Note Pt seen & evaluated, chart reviewed. No family at bedside. Pt will need consented, will need POA. Correction of electrolytes per primary team. Will tentatively plan for EGD today if can contact POA.
[2017-09-29] MEDS ORDERED: FENTANYL CITRATE INJ 50 MCG/1 ML 2 ML VIAL ONE (11:02)
[2017-09-29] MEDS ORDERED: LIDOCAINE HCL 2% 2 ML VIAL (20MG/ML) ONE (11:02)
[2017-09-29] MEDS ORDERED: PROPOFOL IV EMULSION 10 MG/ML 20 ML VIAL IV ONE (11:02)
--- NOTE | 2017-09-29 11:16 | Endo History and Physical ---
History & Physical Date of Service: Sep 29, 2017. Chief Complaint: Witnessed coffee-ground emesis Referring Physician: History of Present Illness Patient admitted with witnessed coffee-ground emesis at her group home. She has a history of schizophrenia and dementia and is unable to give any history. EGD has been requested by the internal medicine service and family to evaluate the question of coffee-ground emesis. Past Medical History Atrial Fibrillation, Alzheimer's, Other Psy. Disorders, Anxiety, Reflux, High Cholesterol, Heart Disease, Hypertension, Depression, [place] Past Surgical History Hx Cardiac Surgery: No Hx Abdominal Surgery: No Hx Post-Op Nausea and Vomiting: No Hx Cancer Surgery: No Hx Thoracic Surgery: No Hx Orthopedic: No Hx Urinary Tract Surgery: No Social History Smoking Status: Unknown if Ever Smoked Hx Substance Use: Yes (Ativan) Hx Alcohol Use: No Allergies Coded Allergies: Chlordiazepoxide (Verified Allergy, Unknown, unk, 09/27/17) Clindamycin (Verified Allergy, Unknown, unknown, 09/27/17) Erythromycin (Verified Allergy, Unknown, unk, 09/27/17) Honey (Verified Allergy, Unknown, unk, 09/27/17) Meperidine (Verified Allergy, Unknown, unk, 09/27/17) Metoprolol (Verified Allergy, Unknown, unk, 09/27/17) Paroxetine (Verified Allergy, Unknown, unk, 09/27/17) Peanut (Verified Allergy, Unknown, PEANUT BUTTER, 09/27/17) Sulfa Antibiotics (Verified Allergy, Unknown, `, 09/27/17) Venlafaxine (Verified Allergy, Unknown, unk, 09/27/17) Penicillins (Verified Adverse Reaction, Intermediate, NAUSEA, YEAST INFECTION, 09/27/17) Lactose Intolerance (GI) (Verified Adverse Reaction, Unknown, GI SYMPTOMS , 09/27/17) Current Medications Reported Home Medications Medications Dose Route/Sig Max Daily Dose Days Date Category Dose Instructions Artificial Tears (Artificial Tear Solution) 1 Vita Vita 1 Drops OPB BID 09/27/17 Reported Benztropine Mesylate 1 Mg Tab 1 Mg PO BID 09/27/17 Reported Ativan (Lorazepam) 0.5 Mg Tab 0.5 Mg PO BID PRN 09/27/17 Reported if patient refuses give im Tylenol (Acetaminophen) 325 Mg Tab 650 Mg PO Q6 PRN 09/27/17 Reported pain rated 1-6 do not exceed 3gm/24hr Tylenol (Acetaminophen) 325 Mg Tab 650 Mg PO Q4 PRN 09/27/17 Reported dont exceed 3gm/24hr Ativan (Lorazepam) 2 Mg/Ml Inj 0.25 Ml IM BID PRN 09/27/17 Reported give if patient refuses to take po Zofran (Ondansetron HCl) 4 Mg Tab 4 Mg PO Q8 PRN 09/27/17 Reported Nutritional Supplement (Enteral Nutritional Formula) Ea 1 Dose PO TID 09/27/17 Reported juice supplement Senokot (Senna) 8.6 Mg Tab 1 Tab PO BID 09/27/17 Reported Risperdal (Risperidone) 0.5 Mg Tab 0.5 Mg PO BID 14 09/27/17 Reported last dose 10/07/17 in am Ativan (Lorazepam) 0.5 Mg Tab 0.5 Mg PO BID 09/27/17 Reported Coreg (Carvedilol) 6.25 Mg Tab 6.25 Mg PO BID 09/27/17 Reported Depakote Sprinkle (Divalproex Sodium) 125 Mg Cap 250 Mg PO BID 09/27/17 Reported Melatonin 3 Mg Tab 3 Mg PO HS 09/27/17 Reported Sodium Chloride 1 Gm Tab 2 Gm PO BID 05/16/17 Reported Seroquel (Quetiapine Fumarate) 100 Mg Tab 100 Mg PO HS 05/16/17 Reported Ferrous Sulfate 325 Mg Tab 325 Mg PO BID 11/06/16 Reported Prilosec (Omeprazole) 20 Mg Capcr 20 Mg PO QAM 11/06/16 Reported Miralax (Polyethylene Glycol 3350) 1 Pow Pow 17 Gm PO DAILY@1200 11/06/16 Reported Tylenol (Acetaminophen) 325 Mg Tab 650 Mg PO BID 08/03/14 Reported Vital Signs Weight (Kilograms): 63.000 Height (Feet): 5 Date Time Temp Pulse Resp B/P (MAP) Pulse Ox O2 Delivery O2 Flow Rate FiO2 09/29/17 08:00 37.4 90 22 168/99 (122) 97 Room Air 09/29/17 08:00 97 Room Air 09/29/17 00:00 95 Room Air 09/28/17 23:34 37.1 94 20 165/110 (128) 94 Room Air 09/28/17 20:00 95 Room Air 09/28/17 18:57 37.0 91 20 139/88 (105) 95 Room Air 09/28/17 16:05 Room Air 09/28/17 15:58 100 146/98 (114) 09/28/17 15:31 37.1 109 20 193/124 (147) 95 Room Air 09/28/17 12:45 Room Air 09/28/17 12:05 36.9 106 20 147/84 (105) 95 Room Air Physical Exam General Appearance: + mild distress Respiratory/Chest: Auscultation: no wheezing Abdomen: Inspection & Palpation: soft Assessment and Plan Patient admitted with a history of coffee-ground emesis and minimal change in her blood count since admission. The patient's family wishes us to proceed with upper endoscopy for further evaluation. I discussed the risks of upper endoscopy to include bleeding, infection, perforation, aspiration and cardiopulmonary complications. Recommendations Upper endoscopy today per patient POA wishes
--- NOTE | 2017-09-29 11:33 | GI REPORT ---
Procedure Date: 09/29/2017 11:20 AM Procedure: Upper GI endoscopy Indications: Coffee-ground emesis Medicines: Monitored Anesthesia Care Complications: No immediate complications. Estimated blood loss: Minimal. Estimated Blood Loss: Estimated blood loss was minimal. Procedure: Pre-Anesthesia Assessment: - Prior to the procedure, a History and Physical was performed, and patient medications, allergies and sensitivities were reviewed. The patient's tolerance of previous anesthesia was reviewed. - The patient is unable to give consent secondary to the patient's altered mental status. The alternatives, risks and benefits of the procedure were discussed at length with the patient's sister. The patient's proxy verbalized understanding of the risks as well as the alternatives and wished to proceed with the procedure. - Patient identification and proposed procedure were verified prior to the procedure by the physician, the nurse and the hose inspector. The procedure was verified in the procedure room. - Pre-procedure physical examination revealed no contraindications to sedation. - ASA Grade Assessment: IV - A patient with severe systemic disease that is a constant threat to life. - After reviewing the risks and benefits, the patient was deemed in satisfactory condition to undergo the procedure. - The anesthesia plan was to use monitored anesthesia care (MAC). - Immediately prior to administration of medications, the patient was re-assessed for adequacy to receive sedatives. - The heart rate, respiratory rate, oxygen saturations, blood pressure, adequacy of pulmonary ventilation, and response to care were monitored throughout the procedure. - The physical status of the patient was re-assessed after the procedure. After obtaining informed consent, the endoscope was passed under direct vision. Throughout the procedure, the patient's blood pressure, pulse, and oxygen saturations were monitored continuously. The scope was introduced through the mouth, and advanced to the third part of duodenum. The upper GI endoscopy was somewhat difficult due to abnormal anatomy. The patient tolerated the procedure well. Findings: Esophagitis with no bleeding was found in the lower third of the esophagus. A large paraesophageal type hernia was found. The proximal extent of the gastric folds (end of tubular esophagus) was 35 cm from the incisors. The hiatal narrowing was 37 cm from the incisors. The examined duodenum was overall normal appearing. The first portion of the duodenum was notable fot a "torsion" like appearance consistnet with an intrathoracic stomach. Impression: - Reflux esophagitis. - Suspect an intrathoracic stomach. - Normal examined duodenum. - No specimens collected. Recommendation: - [facility]. - Advance diet as tolerated. - Use Protonix (pantoprazole) 40 mg PO daily indefinitely. - Perform CT scan (computed tomography) of the chest and abdomen with contrast at appointment to be scheduled. - If found to have an intrathoracic stomach would suggest surgical referral (Thoracic) Kvng Jeffers D.O. Kvng Jeffers, 09/29/2017 11:32:54 AM This report has been signed electronically. Note Initiated On: 09/29/2017 11:20 AM I attest to the content of the Intraoperative Record and orders documented therein, exceptions below
--- NOTE | 2017-09-29 11:40 | Progress Note ---
Progress Note Date of Service Sep 29, 2017. Progress Note Upper endoscopy performed today. There was no evidence of active bleeding. She does have evidence of mild esophagitis which could be the source of her coffee-ground emesis. In addition she has what appears to be an intrathoracic stomach. I did call the patient's power of attorney law clerk and discussed the potential diagnoses at great length. Typically, we refer these patients to surgery for further evaluation. Given the patient's mental status I'm not certain that this is in her best interest, I will defer this discussion to the patient's POA and the primary hospitalist service \recommendations Protonix 40 mg per day Advance diet as tolerated Please order a CT of the chest and abdomen (can be done by Medicine) Please call with any questions or concerns GI to sign off
--- NOTE | 2017-09-29 11:48 | Anesthesiology Progress Note ---
Anesthesia Post Op Note Date & Time Sep 29, 2017 at 11:47 Vital Signs Pain Intensity: 0.0 Vital Signs Past 12 Hours Date Time Temp Pulse Resp B/P (MAP) Pulse Ox O2 Delivery O2 Flow Rate FiO2 09/29/17 11:43 95 18 131/76 (94) 97 Room Air 09/29/17 11:33 37.1 90 20 124/68 (86) 99 Oxymask 09/29/17 11:12 36.1 79 20 145/103 (117) 94 Room Air 09/29/17 08:00 37.4 90 22 168/99 (122) 97 Room Air 09/29/17 08:00 97 Room Air 09/29/17 00:00 95 Room Air Notes Mental Status: alert / awake / arousable, participated in evaluation Pt Amnestic to Procedure: Yes Nausea / Vomiting: adequately controlled Pain: adequately controlled Airway Patency, RR, SpO2: stable & adequate BP & HR: stable & adequate Hydration State: stable & adequate Anesthetic Complications: no major complications apparent patient is at baseline mental status prior to discharge from [facility]
--- NOTE | 2017-09-29 11:52 | Progress Note ---
Progress Note Date of Service Sep 29, 2017. Progress Note ATTENDING NOTE ; got update form GI EGd showed large Hiatal Hernia -possible intrathoracic stomach mild inflammation in lower esophageal region no active bleeding pt's sister updated regarding EGD finding by GI recommend CT /abdomen pelvis for assessment poor candidate for Surgical correction poor prognosis , high risk for aspiration and recurrent gastritis due significant acid reflux associated with Hiatal Hernia recommend to advance diet Protonix daily Hospice care would be appropriate will Discuss with Sister Pt's POA
[2017-09-29] MEDS ORDERED: OPTIRAY 320 IV PRN (12:00)
[2017-09-29 12:15] VITALS: BP 161/96; PULSE 94; TEMP 36.7; O2SAT 95
[2017-09-29] MEDS: LORAZEPAM 0.5 MG TAB PO SCH ×2 (13:44→21:04)
[2017-09-29] MEDS: DIVALPROEX SODIUM SPRINKLE 125 MG CAP PO SCH ×2 (13:44→21:06)
[2017-09-29] MEDS: FERROUS SULFATE 325 MG TAB PO SCH ×2 (13:45→21:07)
[2017-09-29] MEDS: CARVEDILOL 6.25 MG TAB PO SCH ×2 (13:45→21:05)
[2017-09-29] MEDS: RISPERIDONE 0.5 MG TAB PO SCH ×2 (13:45→21:06)
[2017-09-29] MEDS: SENNA 8.6 MG TAB PO SCH ×2 (13:46→21:06)
[2017-09-29] MEDS: SODIUM CHLORIDE 1 GM TAB PO SCH ×2 (13:46→21:07)
[2017-09-29] MEDS: BENZTROPINE MESYLATE 1 MG TAB PO SCH ×2 (13:46→21:05)
--- NOTE | 2017-09-29 14:41 | DIAGNOSTIC IMAGING REPORT ---
CT SCAN OF THE CHEST WITH IV CONTRAST CLINICAL HISTORY: Hiatal hernia. COMPARISON STUDY: Chest CT dated 08/17/2014. TECHNIQUE: Following the IV administration of 92 cc of Optiray 320, CT scan of the thorax was performed from the thoracic inlet to the upper abdomen. Images are reviewed in the axial, sagittal, and coronal planes. IV contrast was administered without complication. A dose lowering technique was utilized adhering to the principles of ALARA. The examination is severely degraded by motion artifact, as well as by Armaan department position the patient within the CT gantry. FINDINGS: Thyroid: Imaged portions of the thyroid gland are normal in size and attenuation. Thoracic aorta: The thoracic aorta is normal in caliber and demonstrates bovine variant arch anatomy. No dissection is seen. Pulmonary vasculature: The pulmonary trunk is normal in caliber. There are no filling defects identified in the central pulmonary vessels to indicate pulmonary embolus. Note that this examination was not protocoled for evaluation of the pulmonary arteries. Heart: The heart is normal in size and configuration, and without pericardial effusion. The coronary arteries are densely calcified. Lungs and pleural spaces: Evaluation of the lung parenchyma is degraded by motion artifact. There is significant left basilar atelectasis secondary to the large hiatal hernia. There are minimal patchy groundglass opacities in the left upper lobe seen on image #90. The trachea appears clear. Subpleural reticulation and atelectasis are seen throughout the right lung. No pleural effusion is identified. Mediastinum: There is no mediastinal lymphadenopathy. Hilda: Clear. Axillae: There is no axillary lymphadenopathy. Upper abdomen: There is a large hiatal hernia, with the entire stomach located in the thoracic cavity. The gastroesophageal junction is located above the diaphragm. The esophagus appears patulous. The kidneys appear atrophic. Severe left-sided hydronephrosis is partially visualized. Skeletal structures: The Skeletal structures are osteopenic. Hyperkyphosis and scoliosis are suggested in the thoracic spine. No lytic or blastic bony lesions are seen. IMPRESSION: 1. Significantly degraded examination as above 2. There is a large hiatal hernia, with the entire stomach located in the thoracic cavity. The gastroesophageal junction is above the diaphragm. This causes atelectasis of the left lung base. 3. There is mild patchy groundglass change in the left upper lobe. This likely represents a mild infectious/inflammatory pneumonitis. Clinical correlation will be required. 4. The lung are otherwise grossly clear. 5. Severe left hydronephrosis is partially imaged. This was also seen in 2014. Electronically signed by: Taran Pearson M.D. 09/29/2017 2:40 PM Dictated Date/Time: 09/29/2017 2:32 PM
--- NOTE | 2017-09-29 14:53 | Discharge Instructions ---
Discharge Instructions Date of Service Sep 29, 2017. Admission Reason for Admission: Gi Bleed Discharge Discharge Diagnosis / Problem: GI BLEED /GASTRITIS /LARGE HIATAL HERNIA /LEFT HIP FX Discharge Goals Goal(s): Increase independence, Improve disease control, Diagnostic testing, Therapeutic intervention Activity Recommendations Activity Level: Assistance Required Weightbearing Status: Left non-weightbearing . Additional Information Patient informed of condition: Yes Advance Directives: Yes DNR: Yes Level of Care: Other (CARE HOME RESIDNET ) Communicable Disease: No Prognosis: Other (POOR ) Lomas Catheter: No Instructions / Follow-Up Instructions / Follow-Up CONTINUE TO FOLLOW UP WITH PHYSICIAN AT [facility] SIDE PT WILL BE COMPLETELY NON WT BEARING ON LEFT SIDE -LEFT SIDED DISPLACED / COMMUTED FEMUR FX Current Hospital Diet Patient's current hospital diet: Regular Diet Discharge Diet Recommended Diet: Regular Diet Diet Texture: Mechanical Soft (ground) Procedures Procedures Performed: EGD Pending Studies Studies pending at discharge: no Medical Emergencies . Who to Call and When: Medical Emergencies: If at any time you feel your situation is an emergency, please call 911 immediately. . Non-Emergent Contact Non-Emergency issues call your: Primary Care Provider . . "Provider Documentation" section prepared by Ashley Saldaña. . Core Measure Problem Core Measures: None
--- NOTE | 2017-09-29 15:04 | DIAGNOSTIC IMAGING REPORT ---
ABD/PELVIS IV CONTRAST ONLY CT DOSE: 684.04 mGy.cm HISTORY: Pain LARGE HIATAL HERNIA TECHNIQUE: Multiaxial CT images of the abdomen and pelvis were performed following the use of intravenous contrast. A dose lowering technique was utilized adhering to the principles of ALARA. COMPARISON STUDY: 03/01/2016 FINDINGS: Bibasilar parenchymal and interstitial change which has been described previously. Large fixed hiatal hernia. Configuration of liver is unremarkable. No evidence for cardiac enlargement. Right kidney enhances uniformly. No evidence for hydronephrosis. Chronic left renal hydronephrosis with cortical thinning of the left kidney. This is unchanged in the prior exam. Limited visibility of the bowel pattern of the upper abdomen. Multiple fluid-filled loops of bowel are present. Bladder is midline. No free fluid within the pelvic cul-de-sac. There are findings of a displaced left femoral head and subcapital region fracture with anterior displacement of the left femoral shaft. There is considerable soft tissue edematous change surrounding the abdomen and associated acetabulum. There are avulsion fractures of the anterior and posterior aspect of the acetabulum. There are several bony fragments within what is most likely a combination of granulation tissue and joint effusion about the left hip region. There is a small calcification right posterior aspect of the bladder. There are considerable degenerative changes of the lumbar spine. IMPRESSION: 1. Displaced comminuted fracture left femoral head and subcapital region of the left femoral neck. 2. Additionally avulsions the anterior and posterior aspect of the acetabulum with considerable surrounding effusion and or granulation tissue about the left hip and acetabular region. 3. Chronic hydronephrosis left kidney. 4. Large fixed hiatal hernia. 5. Fluid-filled loops of small bowel and duodenal sweep the upper abdomen have uncertain significance although a true obstructive pattern does not appear to be present. The above report was generated using voice recognition software. It may contain grammatical, syntax or spelling errors. Electronically signed by: Alen Villalobos M.D. 09/29/2017 3:03 PM Dictated Date/Time: 09/29/2017 2:57 PM
[2017-09-29 15:20] VITALS: BP 101/59; PULSE 90; TEMP 36.9; O2SAT 96
[2017-09-29 16:43] VITALS: O2SAT 95
[2017-09-29] MEDS: ACETAMINOPHEN 325 MG TAB PO PRN (16:59)
[2017-09-29] MEDS: QUETIAPINE FUMARATE 100 MG TAB PO SCH (21:08)
--- NOTE | 2017-09-29 21:52 | Progress Note ---
Internal Med Progress Note Date of Service: Sep 29, 2017. Provider Documentation: SUBJECTIVE: remains confused had EGD done today showed large hiatal hernia OBJECTIVE: Vital Signs-as noted below Exam: General-elderly female , advanced dementia Eyes-sclera non icteric ENT-absence of teeth Lungs-no wheeze or rales Heart-regular S1/S2 Abdomen-soft, non tender Extremities-no lower ext edema Neuro-advanced dementia , confused , Lab data as noted below. ASSESSMENT & PLAN: GI BLEED sent form [facility] with report of coffee ground emesis appreciate input form GI EGD shows large hiatal hernia -with esophagitis recommend PO Protonix daily not a surgical candidate for hernia repair -very poor prognosis -increased risk for recurrent aspiration , gastritis leading to GI bleed GI recommend Hospice care CT abdomen /pelvis : Displaced comminuted fracture left femoral head and subcapital region of the left femoral neck. 2. Additionally avulsions the anterior and posterior aspect of the acetabulum with considerable surrounding effusion and or granulation tissue about the left hip and acetabular region. 3. Chronic hydronephrosis left kidney. 4. Large fixed hiatal hernia. D/w pt's POA Sister Kate updated regarding CT finding and evidence of displaced left sided pelvic and femoral fx sister mentions pt has fallen numerous time she was at the dementia unit, even with close observation , she will climb out of bed as sustain fall at baseline , pt has limited mobility pt needs to complete non wt bearing on left side , needs to be on wheel chair very poor prognosis -baseline advance dementia with multiple co morbidities discuss with hospice care option for the pt Sister is willing for hospice comfort care , does not want pt to be in pain Ok with pt to return back to [facility] with hospice care DISPLACED COMMUTED FX OF LEFT FEMUR : incidental finding CT does not report the chronicity of the Fx acute vs chronic pain control very poor prognosis ADVANCED DEMENTIA : with confusion , baseline behavioral issues observe fall precaution HX OF SCHIZOPHRENIA: cont out pt Psych meds DNR /DNI DVT PROPHYLAXIS high risk for DVT with Fx of left hip ordered for sub q heparin DISPOSITION return back to [facility] hospice -Sister in agreement will update social service Vital Signs: Date Time Temp Pulse Resp B/P (MAP) Pulse Ox O2 Delivery O2 Flow Rate FiO2 09/30/17 08:00 Room Air 09/30/17 07:43 37.0 99 18 147/83 (104) 95 Room Air 09/30/17 00:00 95 Room Air 09/29/17 16:43 95 Room Air 09/29/17 15:20 36.9 90 16 101/59 (73) 96 Room Air 09/29/17 12:15 36.7 94 16 161/96 (117) 95 Room Air 09/29/17 11:53 90 20 151/89 (109) 97 Room Air 09/29/17 11:43 95 18 131/76 (94) 97 Room Air 09/29/17 11:33 37.1 90 20 124/68 (86) 99 Oxymask 09/29/17 11:12 36.1 79 20 145/103 (117) 94 Room Air Lab Results:
[2017-09-30] VITALS: O2SAT 95
[2017-09-30] MEDS: FERROUS SULFATE 325 MG TAB PO SCH ×2 (07:39→21:28)
[2017-09-30] MEDS: SODIUM CHLORIDE 1 GM TAB PO SCH ×2 (07:39→21:30)
[2017-09-30] MEDS: PANTOprazole SOD 40 MG TAB PO SCH (07:39)
[2017-09-30] MEDS: ARTIFICIAL TEARS OP SOLN OP SCH ×4 (07:39→21:25)
[2017-09-30] MEDS: SENNA 8.6 MG TAB PO SCH ×2 (07:39→21:29)
[2017-09-30] MEDS: DIVALPROEX SODIUM SPRINKLE 125 MG CAP PO SCH ×2 (07:40→21:28)
[2017-09-30] MEDS: CARVEDILOL 6.25 MG TAB PO SCH ×2 (07:40→20:00)
[2017-09-30] MEDS: BENZTROPINE MESYLATE 1 MG TAB PO SCH ×2 (07:40→21:26)
[2017-09-30] MEDS: RISPERIDONE 0.5 MG TAB PO SCH ×2 (07:40→21:29)
[2017-09-30] MEDS: ACETAMINOPHEN 325 MG TAB PO PRN ×2 (07:42→14:37)
[2017-09-30] MEDS: LORAZEPAM 0.5 MG TAB PO SCH ×2 (07:42→21:25)
[2017-09-30 07:43] VITALS: BP 147/83; PULSE 99; TEMP 37; O2SAT 95
[2017-09-30] MEDS ORDERED: MoRPHine SULFATE 5 MG/0.25 ML UDP PO PRN (09:45)
[2017-09-30] MEDS ORDERED: FENTANYL PATCH REMOVE & WASTE SCH (10:14)
[2017-09-30] MEDS ORDERED: FENTANYL 12 MCG/HR TDSY TD SCH (10:15)
[2017-09-30 10:55] VITALS: BP 147/83; PULSE 99; TEMP 37; O2SAT 95
[2017-09-30 14:03] LABS: BUN/CREATININE RATIO 16.8 (10-20); CALCIUM 8.3 mg/dl (8.5-10.1); CREATININE 0.56 mg/dl (0.60-1.20); POTASSIUM 4.2 mmol/L (3.5-5.1)
--- NOTE | 2017-09-30 14:31 | DIAGNOSTIC IMAGING REPORT ---
L FEMUR 2 VIEWS ROUTINE CLINICAL HISTORY: Left hip fracture. COMPARISON: Pelvis and hip radiographs June 02, [address] of the abdomen and pelvis September 29, 2017. FINDINGS: There is a markedly displaced left femoral neck fracture. Distal component is displaced superiorly with respect to the femoral head. There is associated bone loss with associated fragments involving the femoral head, femoral neck as well as the superior and posterior blackmon of the acetabulum. No additional left femoral fractures are present. Alignment of left knee is anatomic. IMPRESSION: Markedly displaced left femoral neck fracture with bone loss involving the femoral head, femoral neck and superior and posterior blackmon of the left acetabulum with associated bone fragments. While age indeterminate, the appearance favors a subacute fracture. Electronically signed by: Iggy Quiñonez M.D. 09/30/2017 2:30 PM Dictated Date/Time: 09/30/2017 2:22 PM
--- NOTE | 2017-09-30 15:32 | Progress Note ---
Internal Med Progress Note Date of Service: Sep 30, 2017. Provider Documentation: SUBJECTIVE: seems comfortably says she is fine afebrile eating ok OBJECTIVE: Vital Signs-as noted below Exam: General-alert and awake .confused ENT-normal hearing Neck-no neck masses Lungs-cta b/l no wheezing or crackles Heart-s1 and s2 heard regular rate and rhythm no murmurs Abdomen-benign Extremities-no edema no erythema Neuro-alert and awake moves extremities Lab data as noted below. ASSESSMENT & PLAN: GI BLEED sent form [facility] with report of coffee ground emesis s/p EGD -shows large hiatal hernia -with esophagitis GI recommends PO Protonix daily not a surgical candidate for hernia repair -very poor prognosis -increased risk for recurrent aspiration , gastritis leading to GI bleed GI recommend Hospice care . Left femur fracture: On CT abdomen /pelvis which was done for hiatal hernia multiple falls at [facility] as per family seems pain free [facility] requests for ortho consults before transferring back Await ortho input. ADVANCED DEMENTIA : with confusion , baseline behavioral issues observe fall precaution discussed with sister and is Ok with pt to return back to [facility] with hospice care HX OF SCHIZOPHRENIA: cont out pt Psych meds DNR /DNI DVT PROPHYLAXIS high risk for DVT with Fx of left hip sub q heparin DISPOSITION return back to [facility] after ortho evaluation social service for d/c planning Vital Signs: Date Time Temp Pulse Resp B/P (MAP) Pulse Ox O2 Delivery O2 Flow Rate FiO2 09/30/17 10:55 37.0 99 18 95 Room Air 09/30/17 08:00 Room Air 09/30/17 07:43 37.0 99 18 147/83 (104) 95 Room Air 09/30/17 00:00 95 Room Air 09/29/17 16:43 95 Room Air Lab Results: Results Past 24 Hours Test 09/30/17 13:16 Range/Units Sodium Level 129 136-145 mmol/L Potassium Level 4.2 3.5-5.1 mmol/L Chloride Level 98 98-107 mmol/L Carbon Dioxide Level 25 21-32 mmol/L Anion Gap 6.0 3-11 mmol/L Blood Urea Nitrogen 9 7-18 mg/dl Creatinine 0.56 0.60-1.20 mg/dl Est Creatinine Clear Calc Drug Dose 78.6 ml/min Estimated GFR () 110.3 Estimated GFR (Non- 95.1 BUN/Creatinine Ratio 16.8 10-20 Random Glucose 142 70-99 mg/dl Calcium Level 8.3 8.5-10.1 mg/dl
[2017-09-30] MEDS: CHECK FENTANYL PATCH PLACEMENT SCH (15:35)
[2017-09-30 16:22] VITALS: O2SAT 95
--- NOTE | 2017-09-30 18:36 | Orthopedic Consultation ---
Orthopedic Consultation Date of Consultation: Sep 30, 2017. Attending Physician: Jaylen Armando MD History of Present Illness The patient is a 67-year-old female with significant past medical history of dementia, schizophrenia, chronic hyponatremia, mood disorder and is a resident at her [facility]. She was admitted upon the discovery of a upper GI bleed. Incidentally on abdominal CT it was discovered the patient had a fracture of the left femoral neck. The patient is a poor historian and is unable to provide past medical history or history of present illness. I did discuss over the phone with the patient's sister, YASH Walker. She reports the patient has been nonambulatory for at least 1 year and has had multiple falls. Past Medical/Surgical History Medical Problems: (1) Aggressive behavior Status: Acute (2) Aggressive behavior Status: Acute (3) Altered mental status Status: Acute (4) Bipolar disorder Status: Acute (5) Change in mental status Status: Acute (6) Closed head injury Status: Acute (7) Fall Status: Acute (8) Gastritis Status: Acute (9) Head injury Status: Acute (10) Homicidal ideation Status: Acute (11) Hyponatremia Status: Acute (12) Injury of left foot Status: Acute (13) VT (myocardial infarction) Status: Acute (14) Mood disorder Status: Acute (15) Multiple contusions Status: Acute (16) Right rib fracture Status: Acute (17) Schizophrenia Status: Acute (18) Stroke Status: Acute (19) Suicidal ideation Status: Acute (20) Unresponsive episode Status: Acute (21) UTI (urinary tract infection) Status: Acute (22) Vomiting Status: Acute (23) Weakness Status: Acute (24) Weakness Status: Acute Family History Diabetes mellitus Heart disease Other endocrine and metabolic diseases Social History Smoking Status: Unknown if Ever Smoked Drug Use: none Marital Status: single Housing Status: fdc Occupation Status: retired Allergies Coded Allergies: Chlordiazepoxide (Verified Allergy, Unknown, unk, 09/27/17) Clindamycin (Verified Allergy, Unknown, unknown, 09/27/17) Erythromycin (Verified Allergy, Unknown, unk, 09/27/17) Honey (Verified Allergy, Unknown, unk, 09/27/17) Meperidine (Verified Allergy, Unknown, unk, 09/27/17) Metoprolol (Verified Allergy, Unknown, unk, 09/27/17) Paroxetine (Verified Allergy, Unknown, unk, 09/27/17) Peanut (Verified Allergy, Unknown, PEANUT BUTTER, 09/27/17) Sulfa Antibiotics (Verified Allergy, Unknown, `, 09/27/17) Venlafaxine (Verified Allergy, Unknown, unk, 09/27/17) Penicillins (Verified Adverse Reaction, Intermediate, NAUSEA, YEAST INFECTION, 09/27/17) Lactose Intolerance (GI) (Verified Adverse Reaction, Unknown, GI SYMPTOMS , 09/27/17) Home Medications Scheduled Acetaminophen Tab (Tylenol), 650 MG PO BID Artificial Tear Solution (Artificial Tears), 1 DROPS OPB BID Benztropine Mesylate (Benztropine Mesylate), 1 MG PO BID Carvedilol (Coreg), 6.25 MG PO BID Divalproex Sodium (Depakote Sprinkle), 250 MG PO BID Enteral Nutrition Formula (Nutritional Supplement), 1 DOSE PO TID Ferrous Sulfate (Ferrous Sulfate), 325 MG PO BID Lorazepam (Ativan), 0.5 MG PO BID Melatonin (Melatonin), 3 MG PO HS Omeprazole (Prilosec), 20 MG PO QAM Polyethylene Glycol 3350 (Miralax), 17 GM PO DAILY@1200 Quetiapine Fumarate (Seroquel), 100 MG PO HS Risperidone (Risperdal), 0.5 MG PO BID Senna (Senokot), 1 TAB PO BID Sodium Chloride (Sodium Chloride), 2 GM PO BID Scheduled PRN Acetaminophen Tab (Tylenol), 650 MG PO Q4 PRN for temp>101 Acetaminophen Tab (Tylenol), 650 MG PO Q6 PRN for Mild Pain Lorazepam (Ativan), 0.25 ML IM BID PRN for Anxiety/Agitation Lorazepam (Ativan), 0.5 MG PO BID PRN for Anxiety/Agitation Ondansetron Hcl (Zofran), 4 MG PO Q8 PRN for Nausea Current Inpatient Medications Current Inpatient Medications Medications (Trade) Dose Ordered Sig/Trudi Route Start Time Stop Time Status Last Admin Dose Admin Ondansetron HCl (Zofran Inj) 4 mg Q6H PRN IV 09/27/17 07:45 10/27/17 07:44 09/28/17 15:39 4 MG Benztropine Mesylate (Cogentin Tab) 1 mg BID PO 09/27/17 09:00 10/27/17 08:59 Future hold 09/30/17 07:40 1 MG Carvedilol (Coreg Tab) 6.25 mg BID PO 09/27/17 09:00 10/27/17 08:59 Future hold 09/30/17 07:40 6.25 MG Divalproex Sodium (Depakote Sprinkle Cap) 250 mg BID PO 09/27/17 09:00 10/27/17 08:59 Future hold 09/30/17 07:40 250 MG Ferrous Sulfate (Feosol Tab) 325 mg BID PO 09/27/17 09:00 10/27/17 08:59 Future hold 09/30/17 07:39 325 MG Lorazepam (Ativan Tab) 0.5 mg BID PO 09/27/17 09:00 10/27/17 08:59 Future hold 09/30/17 07:42 0.5 MG Lorazepam (Ativan Tab) 0.5 mg BID PRN PO 09/27/17 07:45 10/27/17 07:44 Future hold 09/30/17 15:32 0.5 MG Quetiapine Fumarate (seroQUEL TAB) 100 mg HS PO 09/27/17 21:00 10/27/17 20:59 09/29/17 21:08 100 MG Risperidone (Risperdal Tab) 0.5 mg BID PO 09/27/17 09:00 10/27/17 08:59 Future hold 09/30/17 07:40 0.5 MG Senna (Senokot Tab) 8.6 mg BID PO 09/27/17 09:00 10/27/17 08:59 Future hold 09/30/17 07:39 8.6 MG Sodium Chloride (Sodium Chloride Tab) 2 gm BID PO 09/27/17 09:00 10/27/17 08:59 Future hold 09/30/17 07:39 2 GM Artificial Tears (Artificial Tears) 1 drops BID OP 09/27/17 09:00 10/27/17 08:59 09/30/17 07:39 1 DROPS Lorazepam (Ativan Inj) 0.5 mg Q4 PRN IV 09/27/17 08:00 10/27/17 07:59 09/28/17 20:15 0.5 MG Miscellaneous (Iv Fluids Completed) 1 ea PRN PRN N/A 09/27/17 08:30 09/27/18 08:29 09/27/17 19:40 1 EA Enteral Nutritional Formula (Boost) 1 can TIDM PO 09/27/17 12:00 10/27/17 11:59 Future Hold Lorazepam 0.5 mg/ Syringe 1 ml @ 1 mls/min Q4H PRN IV 09/27/17 15:30 10/27/17 15:29 09/29/17 01:23 1 MLS/MIN Hydralazine HCl (HydrALAZINE INJ) 10 mg Q8 PRN IV. 09/27/17 16:15 10/27/17 16:14 09/28/17 23:46 10 MG Haloperidol Lactate (Haldol Inj) 2.5 mg Q6 PRN IV 09/27/17 16:15 10/27/17 16:14 09/28/17 02:27 2.5 MG Morphine Sulfate (MoRPHine SULFATE INJ) 1 mg Q4 PRN IV 09/27/17 16:15 10/11/17 16:14 Tramadol HCl (Ultram Tab) 25 mg Q6H PRN PO 09/28/17 19:45 10/28/17 19:44 09/30/17 15:33 25 MG Acetaminophen (Tylenol Tab) 650 mg Q6H PRN PO 09/28/17 19:45 10/28/17 19:44 09/30/17 14:37 650 MG Pantoprazole Sodium (Protonix Tab) 40 mg QAM PO 09/30/17 09:00 10/30/17 08:59 09/30/17 07:39 40 MG Ioversol (Optiray 320) 100 ml UD PRN IV 09/29/17 12:00 10/03/17 11:59 Fentanyl (Duragesic Patch) 12 mcg Q3D@0900 TD 09/30/17 10:15 10/14/17 10:14 09/30/17 10:18 12 MCG Miscellaneous (Fentanyl Patch Remove & Waste) 1 ea Q3D@0859 N/A 09/30/17 10:14 10/30/17 10:13 Miscellaneous Information (Check Fentanyl Patch Placement) 1 ea QS N/A 09/30/17 16:00 10/30/17 15:59 09/30/17 15:35 1 EA Morphine Sulfate (Roxanol Oral Soln) 5 mg Q4 PRN PO 09/30/17 09:45 10/14/17 09:44 Review of Systems The review of systems are negative with the exception of those mentioned in history of present illness above. Physical Exam Date Time Temp Pulse Resp B/P (MAP) Pulse Ox O2 Delivery O2 Flow Rate FiO2 09/30/17 16:22 95 Room Air 09/30/17 10:55 37.0 99 18 95 Room Air 09/30/17 08:00 Room Air 09/30/17 07:43 37.0 99 18 147/83 (104) 95 Room Air 09/30/17 00:00 95 Room Air The patient is easily agitated, intermittently follows commands. Physical exam limited secondary to patient cooperation and underlining agitation. Left lower extremity short and externally rotated. The patient moves her left lower extremity and can roll onto her left and right side independently without pain. Negative log roll. No pain to palpation or with range of motion of the ankle, knee, hip., Skin overlying the left hip is intact and is without ecchymoses. +2 DP pulse, wiggles toes, compartments soft nontender. Laboratory Results Last 24 Hours Test 09/30/17 13:16 Sodium Level 129 mmol/L Potassium Level 4.2 mmol/L Chloride Level 98 mmol/L Carbon Dioxide Level 25 mmol/L Anion Gap 6.0 mmol/L Blood Urea Nitrogen 9 mg/dl Creatinine 0.56 mg/dl Est Creatinine Clear Calc Drug Dose 78.6 ml/min Estimated GFR () 110.3 Estimated GFR (Non- 95.1 BUN/Creatinine Ratio 16.8 Random Glucose 142 mg/dl Calcium Level 8.3 mg/dl Assessment & Plan Left chronic femoral neck fracture. I had a long discussion with the patient's POA, Kate Walker, . We discussed the risks and benefits of surgical versus nonoperative treatments. Due to the chronicity of the injury, the patient's current level of pain on physical exam being mild, non-ambulatory status and acute medical problems, I recommend conservative treatment and continuation of hospice care for pain control. The patient's POA was agreeable to the plan and felt that this was the best option for her sister. She may continue to transfer from bed to chair/wheelchair with assistance as tolerates. Due to non-ambulatory status she runs the increased risk of blood clots and will likely need DVT prophylaxis however in light of her acute GI bleed will defer DVT prophylaxis to medical team. Would recommend mechanical DVT prophylaxis at this time, pain control, in bed/sitting PT and NWB on LLE. L FEMUR 2 VIEWS ROUTINE CLINICAL HISTORY: Left hip fracture. COMPARISON: Pelvis and hip radiographs June 02, [address] of the abdomen and pelvis September 29, 2017. FINDINGS: There is a markedly displaced left femoral neck fracture. Distal component is displaced superiorly with respect to the femoral head. There is associated bone loss with associated fragments involving the femoral head, femoral neck as well as the superior and posterior blackmon of the acetabulum. No additional left femoral fractures are present. Alignment of left knee is anatomic. IMPRESSION: Markedly displaced left femoral neck fracture with bone loss involving the femoral head, femoral neck and superior and posterior blackmon of the left acetabulum with associated bone fragments. While age indeterminate, the appearance favors a subacute fracture.
[2017-09-30 21:26] VITALS: BP 99/66; PULSE 111
[2017-09-30] MEDS: QUETIAPINE FUMARATE 100 MG TAB PO SCH (21:30)
[2017-10-01] MEDS: CHECK FENTANYL PATCH PLACEMENT SCH ×4 (00:05→23:27)
[2017-10-01 00:12] VITALS: BP 126/80; PULSE 110; TEMP 37.3; O2SAT 93
[2017-10-01 06:44] LABS: BASO % 0.3 %; BASO ABS # 0.03 K/uL (0-0.2); COMPLETE YES; EOS % 4.7 %; HEMATOCRIT 30.5 % (37-47); IG% 0.7 %; LYMPH % 28.2 %; LYMPH ABS # 3.33 K/uL (1.2-3.4); MEAN CELL VOLUME 93.6 fL (80-100); MEAN CORPUSCULAR HEMOGLOBIN 30.7 pg (25-34); MEAN CORPUSCULAR HGB CONC 32.8 g/dl (32-36); MEAN PLATELET VOLUME 8.7 fL (7.4-10.4); MONO % 17.1 %; PLATELET COUNT 390 K/uL (130-400); RED BLOOD COUNT 3.26 M/uL (4.2-5.4); WHITE BLOOD COUNT 11.82 K/uL (4.8-10.8)
[2017-10-01 07:12] VITALS: BP 131/85; PULSE 113; TEMP 36.7; O2SAT 94
[2017-10-01 07:14] LABS: BUN/CREATININE RATIO 26.8 (10-20); CALCIUM 7.9 mg/dl (8.5-10.1); CREATININE 0.27 mg/dl (0.60-1.20); MAGNESIUM 1.5 mg/dl (1.8-2.4); POTASSIUM 4.1 mmol/L (3.5-5.1)
[2017-10-01] MEDS: ARTIFICIAL TEARS OP SOLN OP SCH ×4 (09:14→21:53)
[2017-10-01] MEDS: SODIUM CHLORIDE 1 GM TAB PO SCH ×2 (09:14→22:02)
[2017-10-01] MEDS: BENZTROPINE MESYLATE 1 MG TAB PO SCH ×2 (09:14→21:54)
[2017-10-01] MEDS: CARVEDILOL 6.25 MG TAB PO SCH ×2 (09:14→21:55)
[2017-10-01] MEDS: PANTOprazole SOD 40 MG TAB PO SCH (09:14)
[2017-10-01] MEDS: RISPERIDONE 0.5 MG TAB PO SCH ×2 (09:15→21:59)
[2017-10-01] MEDS: FERROUS SULFATE 325 MG TAB PO SCH ×2 (09:15→21:58)
[2017-10-01] MEDS: SENNA 8.6 MG TAB PO SCH ×2 (09:15→21:59)
[2017-10-01] MEDS: DIVALPROEX SODIUM SPRINKLE 125 MG CAP PO SCH ×2 (09:15→21:58)
[2017-10-01] MEDS: LORAZEPAM 0.5 MG TAB PO SCH ×2 (09:17→21:53)
[2017-10-01 13:00] VITALS: PULSE 102; O2SAT 93
[2017-10-01] MEDS: MAGNESIUM SULFATE 1GM / D5W 1 GM in PREMIXED IN D5W 100 ML IV SCH ×2 (13:58→16:08)
[2017-10-01] MEDS: SODIUM CHLORIDE 0.9% 1000ML 1,000 ML IV SCH (13:58)
--- NOTE | 2017-10-01 15:09 | Palliative Care Consultation ---
Consultation Date of Consultation: Oct 01, 2017. Requesting Physician: Dr. Saldaña Attending Physician: Dr. Armando Reason for Consultation: Goals of care History of Present Illness This 67 year old female patient with PMH advanced Alzheimer's dementia, schizophrenia, bipolar, afib, chronic hyponatremia, and others listed below presented to the hospital four days ago with c/o abdominal pain and an episode of coffee ground emesis from the [facility]. GI consulted but no need for EGD at the time as patient's hgb was stable, no further episode, and given patient's advanced dementia and comorbidities. Incidentally, a left femoral neck fracture was found on CT scan. Patient was unable to provide any history or recall a fall given her advanced dementia. Patient's sister/POA, Kate Bernardo, however stated that patient has been essentially non- ambulatory for about a year now but does recall that patient has had some falls. Ortho consulted obtained, conservative medical/palliative management was recommended and patient's sister agreed. Palliative care consulted to establish goals of care. I spoke with patient at bedside. She is awake and alert, but disoriented. She could tell me her name and her sister's name, but that was about it. She did say that she was having no pain. No meaningful goals of care conversation able to be had with patient. I spoke with patient's sister/POA, Kate Bernardo, on phone. She confirmed that goal is strictly for pain management and comfort, wants hospice care when patient returns to [facility]. She is from [place], [place]. I don't think she will be coming in to hospital, no POLST form done. Past Medical/Surgical History Medical History: as above CVA UTI Rib fracture Mood disorder Gastritis Weakness Social History Smoking Status: Unknown if Ever Smoked History of Alcohol Use: No Drug Use: none Marital Status: single Housing Status: [facility] Occupation Status: retired Review of Systems unable to obtain full ROS due to altered mental status Allergies Coded Allergies: Chlordiazepoxide (Verified Allergy, Unknown, unk, 09/27/17) Clindamycin (Verified Allergy, Unknown, unknown, 09/27/17) Erythromycin (Verified Allergy, Unknown, unk, 09/27/17) Honey (Verified Allergy, Unknown, unk, 09/27/17) Meperidine (Verified Allergy, Unknown, unk, 09/27/17) Metoprolol (Verified Allergy, Unknown, unk, 09/27/17) Paroxetine (Verified Allergy, Unknown, unk, 09/27/17) Peanut (Verified Allergy, Unknown, PEANUT BUTTER, 09/27/17) Sulfa Antibiotics (Verified Allergy, Unknown, `, 09/27/17) Venlafaxine (Verified Allergy, Unknown, unk, 09/27/17) Penicillins (Verified Adverse Reaction, Intermediate, NAUSEA, YEAST INFECTION, 09/27/17) Lactose Intolerance (GI) (Verified Adverse Reaction, Unknown, GI SYMPTOMS , 09/27/17) Medications Current Inpatient Medications Medications (Trade) Dose Ordered Sig/Trudi Route Start Time Stop Time Status Last Admin Dose Admin Ondansetron HCl (Zofran Inj) 4 mg Q6H PRN IV 09/27/17 07:45 10/27/17 07:44 09/28/17 15:39 4 MG Benztropine Mesylate (Cogentin Tab) 1 mg BID PO 09/27/17 09:00 10/27/17 08:59 Future hold 10/01/17 09:14 1 MG Carvedilol (Coreg Tab) 6.25 mg BID PO 09/27/17 09:00 10/27/17 08:59 Future hold 10/01/17 09:14 6.25 MG Divalproex Sodium (Depakote Sprinkle Cap) 250 mg BID PO 09/27/17 09:00 10/27/17 08:59 Future hold 10/01/17 09:15 250 MG Ferrous Sulfate (Feosol Tab) 325 mg BID PO 09/27/17 09:00 10/27/17 08:59 Future hold 10/01/17 09:15 325 MG Lorazepam (Ativan Tab) 0.5 mg BID PO 09/27/17 09:00 10/27/17 08:59 Future hold 10/01/17 09:17 0.5 MG Lorazepam (Ativan Tab) 0.5 mg BID PRN PO 09/27/17 07:45 10/27/17 07:44 Future hold 09/30/17 15:32 0.5 MG Quetiapine Fumarate (seroQUEL TAB) 100 mg HS PO 09/27/17 21:00 10/27/17 20:59 09/30/17 21:30 100 MG Risperidone (Risperdal Tab) 0.5 mg BID PO 09/27/17 09:00 10/27/17 08:59 Future hold 10/01/17 09:15 0.5 MG Senna (Senokot Tab) 8.6 mg BID PO 09/27/17 09:00 10/27/17 08:59 Future hold 10/01/17 09:15 8.6 MG Sodium Chloride (Sodium Chloride Tab) 2 gm BID PO 09/27/17 09:00 10/27/17 08:59 Future hold 10/01/17 09:14 2 GM Artificial Tears (Artificial Tears) 1 drops BID OP 09/27/17 09:00 10/27/17 08:59 10/01/17 09:14 1 DROPS Lorazepam (Ativan Inj) 0.5 mg Q4 PRN IV 09/27/17 08:00 10/27/17 07:59 09/28/17 20:15 0.5 MG Miscellaneous (Iv Fluids Completed) 1 ea PRN PRN N/A 09/27/17 08:30 09/27/18 08:29 09/27/17 19:40 1 EA Enteral Nutritional Formula (Boost) 1 can TIDM PO 09/27/17 12:00 10/27/17 11:59 Future Hold Lorazepam 0.5 mg/ Syringe 1 ml @ 1 mls/min Q4H PRN IV 09/27/17 15:30 10/27/17 15:29 09/29/17 01:23 1 MLS/MIN Hydralazine HCl (HydrALAZINE INJ) 10 mg Q8 PRN IV. 09/27/17 16:15 10/27/17 16:14 09/28/17 23:46 10 MG Haloperidol Lactate (Haldol Inj) 2.5 mg Q6 PRN IV 09/27/17 16:15 10/27/17 16:14 09/28/17 02:27 2.5 MG Morphine Sulfate (MoRPHine SULFATE INJ) 1 mg Q4 PRN IV 09/27/17 16:15 10/11/17 16:14 Tramadol HCl (Ultram Tab) 25 mg Q6H PRN PO 09/28/17 19:45 10/28/17 19:44 09/30/17 15:33 25 MG Acetaminophen (Tylenol Tab) 650 mg Q6H PRN PO 09/28/17 19:45 10/28/17 19:44 09/30/17 14:37 650 MG Pantoprazole Sodium (Protonix Tab) 40 mg QAM PO 09/30/17 09:00 10/30/17 08:59 10/01/17 09:14 40 MG Ioversol (Optiray 320) 100 ml UD PRN IV 09/29/17 12:00 10/03/17 11:59 Fentanyl (Duragesic Patch) 12 mcg Q3D@0900 TD 09/30/17 10:15 10/14/17 10:14 09/30/17 10:18 12 MCG Miscellaneous (Fentanyl Patch Remove & Waste) 1 ea Q3D@0859 N/A 09/30/17 10:14 10/30/17 10:13 Miscellaneous Information (Check Fentanyl Patch Placement) 1 ea QS N/A 09/30/17 16:00 10/30/17 15:59 10/01/17 09:13 1 EA Morphine Sulfate (Roxanol Oral Soln) 5 mg Q4 PRN PO 09/30/17 09:45 10/14/17 09:44 Magnesium Sulfate 1 gm/Prmx 100 ml @ 100 mls/hr Q1H IV 10/01/17 13:15 10/01/17 15:14 Magnesium Oxide (Mag-Ox Tab) 400 mg BID PO 10/01/17 20:00 10/31/17 19:59 Sodium Chloride 1,000 ml @ 75 mls/hr [id number] IV 10/01/17 13:15 10/31/17 13:14 Physical Exam Date Time Temp Pulse Resp B/P (MAP) Pulse Ox O2 Delivery O2 Flow Rate FiO2 10/01/17 08:10 Room Air 10/01/17 07:12 36.7 113 20 131/85 (100) 94 Room Air 10/01/17 00:12 37.3 110 20 126/80 (95) 93 Room Air 10/01/17 00:00 Room Air 09/30/17 21:26 111 99/66 (77) 09/30/17 16:22 95 Room Air General Appearance: no apparent distress, + pertinent finding (chronically ill appearing) ENT: hearing grossly normal Neck: supple, no JVD Respiratory: lungs clear, no respiratory distress, no accessory muscle use Cardiovascular: regular rate, rhythm, no edema Abdomen: normal bowel sounds, non tender, soft Neurologic/Psychiatric: alert, + disoriented Laboratory Results Last 24 Hours Test 10/01/17 06:15 White Blood Count 11.82 K/uL Red Blood Count 3.26 M/uL Hemoglobin 10.0 g/dL Hematocrit 30.5 % Mean Corpuscular Volume 93.6 fL Mean Corpuscular Hemoglobin 30.7 pg Mean Corpuscular Hemoglobin Concent 32.8 g/dl Platelet Count 390 K/uL Mean Platelet Volume 8.7 fL Neutrophils (%) (Auto) 49.0 % Lymphocytes (%) (Auto) 28.2 % Monocytes (%) (Auto) 17.1 % Eosinophils (%) (Auto) 4.7 % Basophils (%) (Auto) 0.3 % Neutrophils # (Auto) 5.80 K/uL Lymphocytes # (Auto) 3.33 K/uL Monocytes # (Auto) 2.02 K/uL Eosinophils # (Auto) 0.56 K/uL Basophils # (Auto) 0.03 K/uL RDW Standard Deviation 46.2 fL RDW Coefficient of Variation 13.6 % Immature Granulocyte % (Auto) 0.7 % Immature Granulocyte # (Auto) 0.08 K/uL Sodium Level 124 mmol/L Potassium Level 4.1 mmol/L Chloride Level 93 mmol/L Carbon Dioxide Level 25 mmol/L Anion Gap 6.0 mmol/L Blood Urea Nitrogen 7 mg/dl Creatinine 0.27 mg/dl Est Creatinine Clear Calc Drug Dose 163.0 ml/min Estimated GFR () 140.2 Estimated GFR (Non- 120.9 BUN/Creatinine Ratio 26.8 Random Glucose 96 mg/dl Calcium Level 7.9 mg/dl Magnesium Level 1.5 mg/dl Assessment & Plan Palliative Performance Scale: 30 % Problem list: Dementia/Alzheimer's- advanced Weakness/non-ambulatory S/p fall and left femoral neck fracture- indeterminate age Chronic hyponatremia GI bleed/?coffee ground emesis- no further episodes since admission Goals of care (Z51.5) Palliative care recs: discussed with patient's sister, Kate, and Dr. Armando. project manager updated. -Patient will be on hospice care upon returning to [facility]. [facility] involved. -Goal is for pain management and comfort. -Patient is non-ambulatory at baseline per the sister, will not be getting out of bed. Is non-weight bearing on the left lower extremity. -Continue fentanyl patch. -Add Roxanol 5mg PO Q3h PRN pain/SOB. Thank you kindly for this consult. Please contact me with any further palliative care needs.
[2017-10-01] MEDS ORDERED: LACTULOSE SYRUP 30 GM/45 ML UDP PO ONE (15:15)
[2017-10-01 16:04] VITALS: BP 89/58; PULSE 91; TEMP 36.6; O2SAT 93
--- NOTE | 2017-10-01 17:30 | Progress Note ---
Internal Med Progress Note Date of Service: Oct 01, 2017. Provider Documentation: SUBJECTIVE: resting comfortably opens eyes on calling and mumbles not in distress afebrile OBJECTIVE: Vital Signs-as noted below Exam: General-sleepy .confused ENT-normal hearing Neck-no neck masses Lungs-cta b/l no wheezing or crackles Heart-s1 and s2 heard regular rate and rhythm no murmurs Abdomen-benign Extremities-no edema no erythema Neuro-sleepy but arousable moves extremities Lab data as noted below. ASSESSMENT & PLAN: GI BLEED sent form [place] with report of coffee ground emesis s/p EGD -shows large hiatal hernia -with esophagitis GI recommends PO Protonix daily not a surgical candidate for hernia repair -very poor prognosis -increased risk for recurrent aspiration , gastritis leading to GI bleed GI recommend Hospice care . hb stable at 10.0 Left femur fracture: On CT abdomen /pelvis which was done for hiatal hernia multiple falls at [place] as per family seems pain free [place] requests for ortho consults before transferring back Ortho recommends conservative management ADVANCED DEMENTIA : with confusion , baseline behavioral issues observe fall precaution talked with sister and is Ok with pt to return back to [facility] with hospice care HX OF SCHIZOPHRENIA: cont out pt Psych meds Hyponatremia dehydration started on fluids f/u labs in am Constipation stool softeners. DNR /DNI DVT PROPHYLAXIS high risk for DVT with Fx of left hip sub q heparin DISPOSITION return back to [facility] possibly in am social service for d/c planning Vital Signs: Date Time Temp Pulse Resp B/P (MAP) Pulse Ox O2 Delivery O2 Flow Rate FiO2 10/01/17 16:04 36.6 91 24 89/58 (68) 93 Room Air 10/01/17 13:00 102 93 Room Air 10/01/17 08:10 Room Air 10/01/17 07:12 36.7 113 20 131/85 (100) 94 Room Air 10/01/17 00:12 37.3 110 20 126/80 (95) 93 Room Air 10/01/17 00:00 Room Air 09/30/17 21:26 111 99/66 (77) Lab Results: Results Past 24 Hours Test 10/01/17 06:15 Range/Units White Blood Count 11.82 4.8-10.8 K/uL Red Blood Count 3.26 4.2-5.4 M/uL Hemoglobin 10.0 12.0-16.0 g/dL Hematocrit 30.5 37-47 % Mean Corpuscular Volume 93.6 80-100 fL Mean Corpuscular Hemoglobin 30.7 25-34 pg Mean Corpuscular Hemoglobin Concent 32.8 32-36 g/dl Platelet Count 390 130-400 K/uL Mean Platelet Volume 8.7 7.4-10.4 fL Neutrophils (%) (Auto) 49.0 % Lymphocytes (%) (Auto) 28.2 % Monocytes (%) (Auto) 17.1 % Eosinophils (%) (Auto) 4.7 % Basophils (%) (Auto) 0.3 % Neutrophils # (Auto) 5.80 1.4-6.5 K/uL Lymphocytes # (Auto) 3.33 1.2-3.4 K/uL Monocytes # (Auto) 2.02 0.11-0.59 K/uL Eosinophils # (Auto) 0.56 0-0.5 K/uL Basophils # (Auto) 0.03 0-0.2 K/uL RDW Standard Deviation 46.2 36.4-46.3 fL RDW Coefficient of Variation 13.6 11.5-14.5 % Immature Granulocyte % (Auto) 0.7 % Immature Granulocyte # (Auto) 0.08 0.00-0.02 K/uL Sodium Level 124 136-145 mmol/L Potassium Level 4.1 3.5-5.1 mmol/L Chloride Level 93 98-107 mmol/L Carbon Dioxide Level 25 21-32 mmol/L Anion Gap 6.0 3-11 mmol/L Blood Urea Nitrogen 7 7-18 mg/dl Creatinine 0.27 0.60-1.20 mg/dl Est Creatinine Clear Calc Drug Dose 163.0 ml/min Estimated GFR () 140.2 Estimated GFR (Non- 120.9 BUN/Creatinine Ratio 26.8 10-20 Random Glucose 96 70-99 mg/dl Calcium Level 7.9 8.5-10.1 mg/dl Magnesium Level 1.5 1.8-2.4 mg/dl
[2017-10-01 21:56] VITALS: BP 134/92; PULSE 106
[2017-10-01] MEDS: MAGNESIUM OXIDE 400 MG TAB PO SCH (21:59)
[2017-10-01] MEDS: QUETIAPINE FUMARATE 100 MG TAB PO SCH (22:02)
[2017-10-02 00:22] VITALS: BP 98/62; PULSE 100; TEMP 36.6; O2SAT 92
[2017-10-02] MEDS: LORAZEPAM INJ 0.5 MG in SYRINGE 0.75 ML IV PRN (03:18)
[2017-10-02] MEDS: SODIUM CHLORIDE 0.9% 1000ML 1,000 ML IV SCH ×2 (03:18→15:53)
[2017-10-02 07:10] VITALS: BP 111/68; PULSE 104; TEMP 36.6; O2SAT 91
[2017-10-02] MEDS: CHECK FENTANYL PATCH PLACEMENT SCH ×2 (07:16→15:53)
[2017-10-02 08:04] LABS: BASO % 0.4 %; BASO ABS # 0.06 K/uL (0-0.2); COMPLETE YES; EOS % 2.8 %; HEMATOCRIT 31.3 % (37-47); IG% 0.6 %; LYMPH % 18.2 %; LYMPH ABS # 2.62 K/uL (1.2-3.4); MEAN CELL VOLUME 94.3 fL (80-100); MEAN CORPUSCULAR HGB CONC 32.9 g/dl (32-36); MEAN PLATELET VOLUME 8.6 fL (7.4-10.4); MONO % 15.3 %; NEUT % 62.7 %; PLATELET COUNT 357 K/uL (130-400); RED BLOOD COUNT 3.32 M/uL (4.2-5.4); WHITE BLOOD COUNT 14.42 K/uL (4.8-10.8)
[2017-10-02 08:30] LABS: CALCIUM 7.5 mg/dl (8.5-10.1); CREATININE 0.33 mg/dl (0.60-1.20); MAGNESIUM 1.9 mg/dl (1.8-2.4); POTASSIUM 4.3 mmol/L (3.5-5.1)
[2017-10-02] MEDS: SODIUM CHLORIDE 1 GM TAB PO SCH (08:47)
[2017-10-02] MEDS: ARTIFICIAL TEARS OP SOLN OP SCH ×2 (08:47)
[2017-10-02] MEDS: LORAZEPAM 0.5 MG TAB PO SCH (08:49)
[2017-10-02] MEDS: CARVEDILOL 6.25 MG TAB PO SCH (08:51)
[2017-10-02] MEDS: SENNA 8.6 MG TAB PO SCH (08:51)
[2017-10-02] MEDS: MAGNESIUM OXIDE 400 MG TAB PO SCH (08:51)
[2017-10-02] MEDS: DIVALPROEX SODIUM SPRINKLE 125 MG CAP PO SCH (08:51)
[2017-10-02] MEDS: PANTOprazole SOD 40 MG TAB PO SCH (08:51)
[2017-10-02] MEDS: RISPERIDONE 0.5 MG TAB PO SCH (08:51)
[2017-10-02] MEDS: BENZTROPINE MESYLATE 1 MG TAB PO SCH (08:51)
[2017-10-02] MEDS: FERROUS SULFATE 325 MG TAB PO SCH (08:52)
--- NOTE | 2017-10-02 13:43 | Discharge Instructions ---
Discharge Instructions Date of Service Oct 02, 2017. Admission Reason for Admission: Gi Bleed Discharge Discharge Diagnosis / Problem: Gi Bleed,displaced left sided pelvic and femoral fx Discharge Goals Goal(s): Decrease discomfort Activity Recommendations Activity Level: Bedrest Therapies: Physical Therapy, Occupational Therapy Weightbearing Status: Left non-weightbearing . Additional Information Patient informed of condition: Yes (severe dementia) Advance Directives: Yes DNR: Yes Level of Care: Other ([facility] hospice) Communicable Disease: No Prognosis: Other (hospice care) Lomas Catheter: No Instructions / Follow-Up Instructions / Follow-Up FOLLOWUP WITH PCP IN ONE WEEK NEEDS DVT PROPHYLAXIS. FOR NOW SCDS/TEDS RECENTLY HAD GI BLEEDING. MAY CONSIDER LOVENOX ONCE BLEEDING ISSUE RESOLVES. Current Hospital Diet Patient's current hospital diet: Regular Diet Discharge Diet Recommended Diet: Regular Diet Diet Texture: Mechanical Soft (ground) Procedures Procedures Performed: EGD Pending Studies Studies pending at discharge: no Physician Orders On Transfer Special Precautions: FALL AND ASPIRATION PRECAUTIONS Vital Signs: EVERY 8HRS Medical Emergencies . Who to Call and When: Medical Emergencies: If at any time you feel your situation is an emergency, please call 911 immediately. . Non-Emergent Contact Non-Emergency issues call your: Primary Care Provider . . "Provider Documentation" section prepared by Jaylen Armando. . Core Measure Problem Core Measures: None
[2017-10-02] MEDS ORDERED: LORA-741 PO (13:46)
--- NOTE | 2017-10-02 13:57 | Progress Note ---
Internal Med Progress Note Date of Service: Oct 02, 2017. Provider Documentation: SUBJECTIVE: resting comfortably sleepy moans on trying to wake up OBJECTIVE: Vital Signs-as noted below Exam: General-sleepy .confused ENT-normal hearing Neck-no neck masses Lungs-cta b/l no wheezing or crackles Heart-s1 and s2 heard regular rate and rhythm no murmurs Abdomen-benign Extremities-no edema no erythema Neuro-sleepy moves extremities Lab data as noted below. ASSESSMENT & PLAN: GI BLEED sent form [place] with report of coffee ground emesis s/p EGD -shows large hiatal hernia -with esophagitis GI recommends PO Protonix daily not a surgical candidate for hernia repair -very poor prognosis -increased risk for recurrent aspiration , gastritis leading to GI bleed GI recommend Hospice care . hb stable at 10.0 snf with hospice care Left femur fracture: On CT abdomen /pelvis which was done for hiatal hernia multiple falls at [place] as per family seems pain free [place] requests for ortho consults before transferring back Ortho recommends conservative management. NWB on LLE. hospice care ADVANCED DEMENTIA : with confusion , baseline behavioral issues observe fall precaution talked with sister and is Ok with pt to return back to [facility] with hospice care HX OF SCHIZOPHRENIA: cont out pt Psych meds Hyponatremia dehydration started on fluids improved Constipation stool softeners. DNR /DNI DVT PROPHYLAXIS high risk for DVT with Fx of left hip scds for now secondary to GI bleed DISPOSITION return back to [facility] with hospice care today Vital Signs: Date Time Temp Pulse Resp B/P (MAP) Pulse Ox O2 Delivery O2 Flow Rate FiO2 10/02/17 07:10 36.6 104 18 111/68 (82) 91 Room Air 10/02/17 07:05 Room Air 10/02/17 00:22 36.6 100 18 98/62 (74) 92 Room Air 10/01/17 23:25 Room Air 10/01/17 21:56 106 134/92 (106) 10/01/17 16:04 36.6 91 24 89/58 (68) 93 Room Air 10/01/17 16:00 Room Air Lab Results: Results Past 24 Hours Test 10/02/17 07:45 Range/Units White Blood Count 14.42 4.8-10.8 K/uL Red Blood Count 3.32 4.2-5.4 M/uL Hemoglobin 10.3 12.0-16.0 g/dL Hematocrit 31.3 37-47 % Mean Corpuscular Volume 94.3 80-100 fL Mean Corpuscular Hemoglobin 31.0 25-34 pg Mean Corpuscular Hemoglobin Concent 32.9 32-36 g/dl Platelet Count 357 130-400 K/uL Mean Platelet Volume 8.6 7.4-10.4 fL Neutrophils (%) (Auto) 62.7 % Lymphocytes (%) (Auto) 18.2 % Monocytes (%) (Auto) 15.3 % Eosinophils (%) (Auto) 2.8 % Basophils (%) (Auto) 0.4 % Neutrophils # (Auto) 9.04 1.4-6.5 K/uL Lymphocytes # (Auto) 2.62 1.2-3.4 K/uL Monocytes # (Auto) 2.21 0.11-0.59 K/uL Eosinophils # (Auto) 0.40 0-0.5 K/uL Basophils # (Auto) 0.06 0-0.2 K/uL RDW Standard Deviation 48.0 36.4-46.3 fL RDW Coefficient of Variation 14.0 11.5-14.5 % Immature Granulocyte % (Auto) 0.6 % Immature Granulocyte # (Auto) 0.09 0.00-0.02 K/uL Sodium Level 131 136-145 mmol/L Potassium Level 4.3 3.5-5.1 mmol/L Chloride Level 98 98-107 mmol/L Carbon Dioxide Level 28 21-32 mmol/L Anion Gap 5.0 3-11 mmol/L Blood Urea Nitrogen 10 7-18 mg/dl Creatinine 0.33 0.60-1.20 mg/dl Est Creatinine Clear Calc Drug Dose 133.3 ml/min Estimated GFR () 131.2 Estimated GFR (Non- 113.2 BUN/Creatinine Ratio 29.0 10-20 Random Glucose 87 70-99 mg/dl Calcium Level 7.5 8.5-10.1 mg/dl Magnesium Level 1.9 1.8-2.4 mg/dl
[2017-10-02] MEDS ORDERED: BISACODYL 10 MG SUPP PR ONE (14:00)
[2017-10-02] MEDS ORDERED: NURSING VERBAL MED ORDER ONE (14:00)
--- NOTE | 2017-10-02 14:00 | Discharge Summary ---
Discharge Summary Date of Service Oct 02, 2017. Discharge Summary Admission Date: Sep 28, 2017 at 10:52 Discharge Date: Oct 02, 2017 Discharge Disposition: [facility] facility (with hospice care) Principal Diagnosis: GI bleed displaced left sided pelvic and femoral fx hyponatremia Secondary Diagnoses/Problems: (1) A-fib Status: Chronic (2) Alzheimer's disease Status: Chronic (3) Atrial Fibrillation Status: Chronic (4) Bipolar Disorder, Unspecified Status: Chronic (5) Dementia Status: Chronic (6) Diverticulosis Colon (W/O Ment Of Hemorrhage) Status: Resolved (7) Esophageal Reflux Status: Chronic (8) Hyperlipidemia Nec/Nos Status: Chronic (9) Hypertension Nos Status: Chronic (10) Hypomagnesemia Status: Chronic Procedures: CHEST CT: 1. Significantly degraded examination as above 2. There is a large hiatal hernia, with the entire stomach located in the thoracic cavity. The gastroesophageal junction is above the diaphragm. This causes atelectasis of the left lung base. 3. There is mild patchy groundglass change in the left upper lobe. This likely represents a mild infectious/inflammatory pneumonitis. Clinical correlation will be required. 4. The lung are otherwise grossly clear. 5. Severe left hydronephrosis is partially imaged. This was also seen in 2014. CT ABD/PELVIS: 1. Displaced comminuted fracture left femoral head and subcapital region of the left femoral neck. 2. Additionally avulsions the anterior and posterior aspect of the acetabulum with considerable surrounding effusion and or granulation tissue about the left hip and acetabular region. 3. Chronic hydronephrosis left kidney. 4. Large fixed hiatal hernia. 5. Fluid-filled loops of small bowel and duodenal sweep the upper abdomen have uncertain significance although a true obstructive pattern does not appear to be present. FEMUR XRAy: Markedly displaced left femoral neck fracture with bone loss involving the femoral head, femoral neck and superior and posterior blackmon of the left acetabulum with associated bone fragments. While age indeterminate, the appearance favors a subacute fracture. S/P EGD Consultations: GI ORTHOPEDICS Medication Reconciliation Continued Medications: Acetaminophen Tab (Tylenol) 325 Mg Tab 650 MG PO BID, TAB Acetaminophen Tab (Tylenol) 325 Mg Tab 650 MG PO Q4 PRN for temp>101 dont exceed 3gm/24hr Acetaminophen Tab (Tylenol) 325 Mg Tab 650 MG PO Q6 PRN for Mild Pain pain rated 1-6 do not exceed 3gm/24hr Artificial Tear Solution (Artificial Tears) 1 Vita Vita 1 DROPS OPB BID, #15 ML 5 Refills Benztropine Mesylate (Benztropine Mesylate) 1 Mg Tab 1 MG PO BID Carvedilol (Coreg) 6.25 Mg Tab 6.25 MG PO BID, TAB Divalproex Sodium (Depakote Sprinkle) 125 Mg Cap 250 MG PO BID, CAP Enteral Nutrition Formula (Nutritional Supplement) Ea 1 DOSE PO TID juice supplement Ferrous Sulfate (Ferrous Sulfate) 325 Mg Tab 325 MG PO BID Lorazepam (Ativan) 0.5 Mg Tab 0.5 MG PO BID PRN for Anxiety/Agitation if patient refuses give im Lorazepam (Ativan) 0.5 Mg Tab 0.5 MG PO BID, #20 TAB (This prescription has been renewed) Melatonin (Melatonin) 3 Mg Tab 3 MG PO HS Omeprazole (Prilosec) 20 Mg Capcr 20 MG PO QAM, CAP Ondansetron Hcl (Zofran) 4 Mg Tab 4 MG PO Q8 PRN for Nausea, TAB Polyethylene Glycol 3350 (Miralax) 1 Pow Pow 17 GM PO DAILY@1200 Quetiapine Fumarate (Seroquel) 100 Mg Tab 100 MG PO HS Risperidone (Risperdal) 0.5 Mg Tab 0.5 MG PO BID for 14 Days last dose 10/07/17 in am Senna (Senokot) 8.6 Mg Tab 1 TAB PO BID, TAB Sodium Chloride (Sodium Chloride) 1 Gm Tab 2 GM PO BID Discontinued Medications: Lorazepam (Ativan) 2 Mg/Ml Inj 0.25 ML IM BID PRN for Anxiety/Agitation give if patient refuses to take po Admission Information HPI (per Admitting provider): This is an unfortunate 67 yo F with past medical hx of dementia, Schizophrenia , Chronic Hyponatremia , mood disorder -resident at [facility] -sent to ER today as nursing noted pt to have coffee ground emesis no History could be obtained form pt due to advanced dementia information obtained for ER record in the ER pt remains stable hemodynamically no episode of hematemesis or melena Hb 12/Hct 38.8 , chronic hyponatremia Na 133, BUN 21 /Cr 0.46 pt admitted to [facility] ordered for Protonix gtt NPO GI eval requested Physical Exam (per Admitting): General Appearance: + pertinent finding (confused , refusing to be touched or to allow physical exam , shouting " get out" ) Head: normocephalic Respiratory/Chest: + pertinent finding (could not be done , pt does not allow to touch ) Cardiovascular: + pertinent finding (could not be done for pts refusal /) Abdomen/GI: + pertinent finding (un coperative , gets agitated with attempt to exam ) Neurologic/Psych: + disoriented, + pertinent finding (confused ,agitated, advanced dementia with behavioral disturbance ) Hospital Course GI BLEED sent form [place] with report of coffee ground emesis s/p EGD -shows large hiatal hernia -with esophagitis GI recommends PO Protonix daily not a surgical candidate for hernia repair -very poor prognosis -increased risk for recurrent aspiration , gastritis leading to GI bleed GI recommend Hospice care . hb stable at 10.0 snf with hospice care Left femur fracture: On CT abdomen /pelvis which was done for hiatal hernia multiple falls at [place] as per family seems pain free [place] requests for ortho consults before transferring back Ortho recommends conservative management. NWB on LLE. hospice care ADVANCED DEMENTIA : with confusion , baseline behavioral issues observe fall precaution talked with sister and is Ok with pt to return back to [facility] with hospice care HX OF SCHIZOPHRENIA: cont out pt Psych meds Hyponatremia dehydration started on fluids improved Constipation stool softeners. DNR /DNI DVT PROPHYLAXIS high risk for DVT with Fx of left hip scds for now secondary to GI bleed DISPOSITION return back to [facility] with hospice care today Total time spent on discharge = 40MINUTES This includes examination of the patient, discharge planning, medication reconciliation, and communication with other providers. Discharge Instructions Discharge Instructions Date of Service Oct 02, 2017. Admission Reason for Admission: Gi Bleed Discharge Discharge Diagnosis / Problem: Gi Bleed,displaced left sided pelvic and femoral fx Discharge Goals Goal(s): Decrease discomfort Activity Recommendations Activity Level: Bedrest Therapies: Physical Therapy, Occupational Therapy Weightbearing Status: Left non-weightbearing . Additional Information Patient informed of condition: Yes (severe dementia) Advance Directives: Yes DNR: Yes Level of Care: Other (jail hospice) Communicable Disease: No Prognosis: Other (hospice care) Lomas Catheter: No Instructions / Follow-Up Instructions / Follow-Up FOLLOWUP WITH PCP IN ONE WEEK NEEDS DVT PROPHYLAXIS. FOR NOW SCDS/TEDS RECENTLY HAD GI BLEEDING. MAY CONSIDER LOVENOX ONCE BLEEDING ISSUE RESOLVES. Current Hospital Diet Patient's current hospital diet: Regular Diet Discharge Diet Recommended Diet: Regular Diet Diet Texture: Mechanical Soft (ground) Procedures Procedures Performed: EGD Pending Studies Studies pending at discharge: no Physician Orders On Transfer Special Precautions: FALL AND ASPIRATION PRECAUTIONS Vital Signs: EVERY 8HRS Medical Emergencies . Who to Call and When: Medical Emergencies: If at any time you feel your situation is an emergency, please call 911 immediately. . Non-Emergent Contact Non-Emergency issues call your: Primary Care Provider . . "Provider Documentation" section prepared by Jaylen Armando.
== END 2017-10-02 18:27 | disposition hospice, inpatient (51) | DRG 378 ==
LOC: EDBD 05:00 → C.EDB 05:02 → C.MED 07:39 → ENRESERV 08:06 → CANRESERV 08:06 → ENRESERV 08:15 → OBSVTOIN 09-28 10:52 → C.MS4W 09-30 18:03
PROVIDERS: ADMIT Hospitalist; ATTEND Internal Medicine
PROC: 0DJ08ZZ Inspection of Upper Intestinal Tract, Via Natural or Artificial Opening Endoscopic (ICD-10-PCS; principal; 2017-09-29 11:04)
DX: K92.0 Hematemesis (principal); E87.1 Hypo-osmolality and hyponatremia; Z51.5 Encounter for palliative care; M84.452A Pathological fracture, left femur, initial encounter for fracture; K20.9 Esophagitis, unspecified; E86.0 Dehydration; K44.9 Diaphragmatic hernia without obstruction or gangrene; I48.91 Unspecified atrial fibrillation; G30.9 Alzheimer's disease, unspecified; F02.80 Dementia in other diseases classified elsewhere, unspecified severity, without behavioral disturbance, psychotic disturbance, mood disturbance, and anxiety; F31.9 Bipolar disorder, unspecified; E78.5 Hyperlipidemia, unspecified; Z83.3 Family history of diabetes mellitus; Z88.2 Allergy status to sulfonamides; Z88.0 Allergy status to penicillin; F20.9 Schizophrenia, unspecified; E83.42 Hypomagnesemia; Z86.73 Personal history of transient ischemic attack (TIA), and cerebral infarction without residual deficits; K59.00 Constipation, unspecified; Z66 Do not resuscitate